=== PATIENT | female | born 1975 | race Two or more races ===

== ENCOUNTER 2016-08-13 10:28 | Inpatient (IN) | payer MEDICAID ==
[~2016-08-13] VITALS: Ht 165.1 cm; Wt 71.7 kg
[2016-08-13] MEDS ORDERED: SODIUM CHLORIDE 0.9% 500 ML IV ONE (11:15)
[2016-08-13] MEDS ORDERED: ONDANSETRON HCL 4 MG/2 ML VIAL IV ONE (11:15)
[2016-08-13] MEDS ORDERED: SODIUM CHLORIDE 0.9% 1,000 ML IV ONE ×3 (11:26→16:45)
[2016-08-13 11:34] LABS: Basophils # (auto) 0 uL; Basophils % (auto) 0.2 % (0.0-2.0); Eosinophils # (auto) 0 uL; Hematocrit 37.2 % (36.0-46.0); Hemoglobin 12.2 g/dL (12.2-16.2); Lymphocytes # (auto) 0.5 uL; Lymphocytes % (auto) 2.6 % (10.0-50.0); Mean Corpuscular Hemoglobin 28.7 pg (28.0-32.0); Mean Corpuscular Hgb Conc. 32.9 g/dL (32.0-36.0); Mean Corpuscular Volume 87.2 fL (80.0-100.0); Mean Platelet Volume 12.7 fL (7.4-10.4); Monocytes # (auto) 0.4 uL; Monocytes % (auto) 2.4 % (0.0-12.0); Neutrophils # (auto) 16.6 uL; Neutrophils % (auto) 94.8 % (37.0-80.0); Platelet Count (auto) 229 10^3/uL (140-450); Red Cell Distribution Width 13.6 % (11.6-16.0); SUSPECT VIEW TRANSMISSION; White Blood Cell 17.5 10^3/uL (4.4-10.8)
[2016-08-13 12:02] LABS: BUN/Creatinine Ratio 23.1; Bilirubin, Total 0.7 mg/dL (0.2-1.0); Calcium 8.9 mg/dL (8.5-10.1); Potassium 5.4 mmol/L (3.5-5.1); Total Protein 6.4 g/dL (6.4-8.2)
[2016-08-13] MEDS ORDERED: SODIUM CHLORIDE 0.9% 3,000 ML IV ONE (12:45)
[2016-08-13 12:50] LABS: Urine Bilirubin Negative (Negative); Urine Blood Negative /uL (Negative); Urine Color Yellow (Yellow); Urine Nitrite Negative (Negative); Urine RBC <1 /hpf (0 - 4); Urine Squamous Epithelial Cell FEW /hpf (<5); Urine Urobilinogen Normal (Negative); Urine pH 5.5 (5.0-8.0)
[2016-08-13 12:58] LABS: Urine Glucose 4+ mg/dL (Normal); Urine Ketone 1+ (Negative)
[2016-08-13] MEDS ORDERED: LORazepam 2MG/ML-1ML VIAL IV ONE (13:30)
[2016-08-13] MEDS ORDERED: NALBUPHINE HCL 10 MG/1ml INJECTION IV ONE (13:30)
[2016-08-13] MEDS ORDERED: PANTOPRAZOLE SODIUM 40 MG/10 ML VIAL IV ONE (13:30)
[2016-08-13] MEDS ORDERED: METOCLOPRAMIDE HCL 5MG/ml INJ 2ml VIAL IV ONE (13:30)
[2016-08-13] MEDS ORDERED: InsuLIN REG 1unit/0.01ml Soln (100units/ml) IV ONE ×2 (15:15→16:30)
[2016-08-13] MEDS ORDERED: InsuLIN R (HUMAN) 100 UNITS in SODIUM CHL 0.9% 99 ML IV SCH ×3 (16:10→17:30)
[2016-08-13] MEDS ORDERED: DEXTROSE (50%) 50ML SYRG IV PRN ×2 (16:15→17:30)
[2016-08-13] MEDS ORDERED: DOPamine 1600MCG/ML 250 ML IV ONE (16:15)
[2016-08-13] MEDS ORDERED: ACCU-CHEK COMFORT CURVE STRIP VI SCH (16:30)
[2016-08-13 16:56] LABS: Lactic Acid w/Reflex 3.3 mmol/L (0.4-2.0)
[2016-08-13 17:04] LABS: REFLEX LACTIC ACID YES OR NO YES
[2016-08-13] MEDS ORDERED: PIPERACILLIN-TAZOB 3.375GM 100 ML IV ONE (17:15)
[2016-08-13] MEDS ORDERED: MORPHINE SULF INJ 2 MG/ML SYRINGE 1ML IV PRN ×2 (17:30)
[2016-08-13] MEDS ORDERED: TEMAZEPAM 15 MG CAP PO PRN (17:30)
[2016-08-13] MEDS ORDERED: ACETAMINOPHEN 500 MG TAB PO PRN (17:30)
[2016-08-13] MEDS ORDERED: LORazepam 0.5 MG TAB PO PRN (17:30)
[2016-08-13] MEDS ORDERED: NITROGLYCERIN 0.4 MG SL TAB SL PRN (17:30)
[2016-08-13] MEDS ORDERED: HYDROcodone-ACET 5/325MG TAB PO PRN (17:30)
[2016-08-13] MEDS ORDERED: cefTRIAXone 1GM/50ML D5W 50 ML IV ONE (17:45)
[2016-08-13] MEDS: SODIUM CHLORIDE 0.9% 1,000 ML IV SCH ×2 (17:46→20:16)
[2016-08-13] MEDS: ACCU-CHEK COMFORT CURVE STRIP VI SCH ×6 (18:08→23:20)
[2016-08-13 18:48] LABS: Partial Thromboplastin Time 34.6 sec (22.64-33.71)
[2016-08-13 18:49] LABS: INR 1.36 (0.9-1.15); Prothrombin Time 14.9 sec (9.37-12.3)
[2016-08-13] MEDS ORDERED: POTASSIUM CHL 20 Meq TABLET PO ONE (20:45)
[2016-08-13] MEDS ORDERED: SODIUM CHLORIDE 0.9% 1,000 ML IV SCH ×2 (21:17→23:17)
[2016-08-13 21:26] LABS: Potassium 4.7 mmol/L (3.5-5.1)
[2016-08-14] MEDS: ACCU-CHEK COMFORT CURVE STRIP VI SCH ×20 (00:07→23:51)
[2016-08-14] MEDS: PROMETHAZINE HCL 25 MG/ML 1ML IV PRN ×2 (03:13→03:54)
[2016-08-14 04:14] LABS: BUN/Creatinine Ratio 21.5; Calcium 7.1 mg/dL (8.5-10.1); Potassium 4.7 mmol/L (3.5-5.1)
[2016-08-14 04:57] LABS: Hematocrit 35.6 % (36.0-46.0); Hemoglobin 11.8 g/dL (12.2-16.2); Mean Corpuscular Hgb Conc. 33.1 g/dL (32.0-36.0); Mean Corpuscular Volume 87.4 fL (80.0-100.0); Mean Platelet Volume 11.1 fL (7.4-10.4); Platelet Count (auto) 257 10^3/uL (140-450); Red Cell Distribution Width 13.8 % (11.6-16.0); SUSPECT VIEW TRANSMISSION; White Blood Cell 20.6 10^3/uL (4.4-10.8)
[2016-08-14 05:17] LABS: Albumin 2.4 g/dL (3.4-5.0); BUN/Creatinine Ratio 22.9; Bilirubin, Total 0.3 mg/dL (0.2-1.0); Calcium 7.1 mg/dL (8.5-10.1); Potassium 5.3 mmol/L (3.5-5.1)
[2016-08-14 05:20] LABS: Metamyelocytes % 0; Myelocytes % 0; Promyelocytes % 0; Reactive Lymphocytes 0
[2016-08-14 05:40] LABS: Hypersegmented Neutrophils Present; Platelet Estimate Adequate
[2016-08-14 05:41] LABS: Anisocytosis Slight; Ovalocytes FEW
[2016-08-14] MEDS ORDERED: VANCOMYCIN PER PHARMACY 0 MG IV SCH (06:45)
[2016-08-14] MEDS ORDERED: PIPERACILLIN-TAZOB 2.25GM 50 ML IV SCH (07:00)
[2016-08-14] MEDS: SODIUM CHLORIDE 0.9% 1,000 ML IV SCH ×2 (07:05→20:05)
[2016-08-14] MEDS: PIPERACILLIN-TAZOB 3.375GM 100 ML IV SCH ×4 (07:20→23:55)
[2016-08-14] MEDS ORDERED: cefTRIAXone 1GM/50ML D5W 50 ML IV SCH (09:00)
[2016-08-14] MEDS ORDERED: VANCOMYCIN 1GM/250ML D5W 250 ML IV ONE (09:00)
[2016-08-14] MEDS: PANTOPRAZOLE SODIUM 40 MG/10 ML VIAL IV SCH (10:15)
[2016-08-14 15:11] LABS: BUN/Creatinine Ratio 19.9; Calcium 7.4 mg/dL (8.5-10.1); Potassium 4.5 mmol/L (3.5-5.1)
[2016-08-14] MEDS ORDERED: INSULIN DETEMIR(LEVEMIR) 1unit/0.01ml Soln (100units/ml) SC ONE (16:30)
[2016-08-14] MEDS ORDERED: DEXTROSE (50%) 50ML SYRG IV PRN (17:30)
[2016-08-14] MEDS: InsuLIN REG 1unit/0.01ml Soln (100units/ml) SC SCH ×2 (17:38→23:51)
[2016-08-14] MEDS ORDERED: ALBUMIN 5% 250 ML IV ONE ×2 (18:15→18:30)
[2016-08-14] MEDS ORDERED: DEXTROSE (50%) 50ML SYRG IV ONE (23:00)
[2016-08-15] MEDS: InsuLIN REG 1unit/0.01ml Soln (100units/ml) SC SCH ×5 (03:00→17:41)
[2016-08-15] MEDS: ACCU-CHEK COMFORT CURVE STRIP VI SCH ×6 (03:13→21:56)
[2016-08-15 03:55] LABS: Basophils # (auto) 0.1 uL; Basophils % (auto) 0.5 % (0.0-2.0); Eosinophils # (auto) 0.3 uL; Eosinophils % (auto) 2.3 % (0.0-7.0); Hematocrit 33.4 % (36.0-46.0); Lymphocytes # (auto) 2.7 uL; Lymphocytes % (auto) 21.2 % (10.0-50.0); Mean Corpuscular Hemoglobin 28.9 pg (28.0-32.0); Mean Corpuscular Hgb Conc. 32.8 g/dL (32.0-36.0); Mean Corpuscular Volume 88.2 fL (80.0-100.0); Mean Platelet Volume 11.1 fL (7.4-10.4); Monocytes # (auto) 0.9 uL; Monocytes % (auto) 7.2 % (0.0-12.0); Neutrophils # (auto) 8.9 uL; Neutrophils % (auto) 68.8 % (37.0-80.0); Platelet Count (auto) 209 10^3/uL (140-450); Red Cell Distribution Width 13.9 % (11.6-16.0); White Blood Cell 12.9 10^3/uL (4.4-10.8)
[2016-08-15 04:21] LABS: BUN/Creatinine Ratio 16.8; Potassium 4.2 mmol/L (3.5-5.1)
[2016-08-15 04:22] LABS: Albumin 2.4 g/dL (3.4-5.0); Bilirubin, Total 0.4 mg/dL (0.2-1.0); Calcium 7.6 mg/dL (8.5-10.1); Magnesium 2.1 mg/dL (1.6-2.6); Total Protein 5.2 g/dL (6.4-8.2)
[2016-08-15] MEDS: PIPERACILLIN-TAZOB 3.375GM 100 ML IV SCH ×2 (06:19→12:03)
[2016-08-15] MEDS: SODIUM CHLORIDE 0.9% 1,000 ML IV SCH (09:25)
[2016-08-15] MEDS: PANTOPRAZOLE SODIUM 40 MG/10 ML VIAL IV SCH (09:41)
[2016-08-15] MEDS ORDERED: SODIUM CHLORIDE 0.9% 1,000 ML IV SCH (12:30)
[2016-08-15] MEDS ORDERED: LEVOFLOXACIN 500MG 100 ML IV ONE (12:30)
[2016-08-15] MEDS ORDERED: LISINOPRIL 10 MG TAB PO ONE (12:30)
[2016-08-15] MEDS ORDERED: DEXTROSE (50%) 50ML SYRG IV PRN (12:30)
[2016-08-15 17:40] VITALS: BP 142/92
[2016-08-15] MEDS ORDERED: ATOR10TA PO (20:01)
[2016-08-15] MEDS ORDERED: BENA5TAB3 PO (20:01)
[2016-08-15 22:00] VITALS: BP 145/88
[2016-08-15] MEDS ORDERED: INSULIN DETEMIR(LEVEMIR) 1unit/0.01ml Soln (100units/ml) SC SCH (22:00)
[2016-08-15] MEDS ORDERED: InsuLIN REG 1unit/0.01ml Soln (100units/ml) SC SCH (22:00)
[2016-08-15] MEDS ORDERED: ATORVASTATIN 20 MG TAB PO SCH (22:00)
[2016-08-16 05:00] VITALS: BP 123/74
[2016-08-16] MEDS: InsuLIN REG 1unit/0.01ml Soln (100units/ml) SC SCH ×2 (06:21→11:42)
[2016-08-16] MEDS: ACCU-CHEK COMFORT CURVE STRIP VI SCH ×2 (06:21→11:41)
[2016-08-16 06:38] LABS: Basophils # (auto) 0 uL; Basophils % (auto) 0.4 % (0.0-2.0); Eosinophils # (auto) 0.5 uL; Eosinophils % (auto) 6.2 % (0.0-7.0); Hematocrit 35.1 % (36.0-46.0); Hemoglobin 11.8 g/dL (12.2-16.2); Lymphocytes # (auto) 2.2 uL; Lymphocytes % (auto) 28.8 % (10.0-50.0); Mean Corpuscular Hemoglobin 29.2 pg (28.0-32.0); Mean Corpuscular Hgb Conc. 33.7 g/dL (32.0-36.0); Mean Corpuscular Volume 86.6 fL (80.0-100.0); Mean Platelet Volume 11.8 fL (7.4-10.4); Monocytes # (auto) 0.7 uL; Neutrophils # (auto) 4.3 uL; Neutrophils % (auto) 55.6 % (37.0-80.0); Platelet Count (auto) 193 10^3/uL (140-450); Red Cell Distribution Width 13.4 % (11.6-16.0); White Blood Cell 7.7 10^3/uL (4.4-10.8)
[2016-08-16 07:02] LABS: Calcium 8.7 mg/dL (8.5-10.1); Potassium 4.2 mmol/L (3.5-5.1)
[2016-08-16 07:04] LABS: BUN/Creatinine Ratio 11.6
[2016-08-16 08:00] VITALS: BP 143/87
[2016-08-16 09:01] VITALS: BP 143/87
[2016-08-16] MEDS ORDERED: LEVOFLOXACIN 500MG 100 ML IV SCH (10:00)
[2016-08-16] MEDS ORDERED: FUROSEMIDE 20 MG TAB PO SCH (10:00)
[2016-08-16] MEDS ORDERED: LISINOPRIL 10 MG TAB PO SCH (10:00)
[2016-08-16] MEDS: PANTOPRAZOLE SODIUM 40 MG/10 ML VIAL IV SCH (10:06)
[2016-08-16 13:00] VITALS: BP 163/94
[2016-08-16 16:08] VITALS: BP 163/94
[2016-08-16 17:00] VITALS: BP 138/83
== END 2016-08-16 17:10 | disposition home or self-care (01) | DRG 420 ==
LOC: ER 10:28 → TELE 10:29 → TELE-E-ADS 08-15 15:45 → TELE-WESTW 08-15 17:20 → UNDODISIN 08-16 12:10
PROVIDERS: ADMIT Internal Medicine; ATTEND Internal Medicine
DX: E10.10 Type 1 diabetes mellitus with ketoacidosis without coma (principal); N17.0 Acute kidney failure with tubular necrosis; D68.9 Coagulation defect, unspecified; R18.8 Other ascites; E44.1 Mild protein-calorie malnutrition; E87.5 Hyperkalemia; N18.3 Chronic kidney disease, stage 3 (moderate); E10.21 Type 1 diabetes mellitus with diabetic nephropathy; E10.40 Type 1 diabetes mellitus with diabetic neuropathy, unspecified; I12.9 Hypertensive chronic kidney disease with stage 1 through stage 4 chronic kidney disease, or unspecified chronic kidney disease; D72.829 Elevated white blood cell count, unspecified; E10.22 Type 1 diabetes mellitus with diabetic chronic kidney disease; E10.319 Type 1 diabetes mellitus with unspecified diabetic retinopathy without macular edema; E78.5 Hyperlipidemia, unspecified; E86.0 Dehydration; E86.1 Hypovolemia; F41.9 Anxiety disorder, unspecified; N17.9 Acute kidney failure, unspecified; Z80.3 Family history of malignant neoplasm of breast; Z83.3 Family history of diabetes mellitus; Z96.41 Presence of insulin pump (external) (internal); Z88.5 Allergy status to narcotic agent; Z88.8 Allergy status to other drugs, medicaments and biological substances; Z71.89 Other specified counseling; R10.9 Unspecified abdominal pain
CPT/HCPCS: 36415; 36600; 51702; 71010; 71250; 74176; 76705; 80048; 80053; 80061; 81001; 81025; 82010; 82150; 82570; 82805; 82962; 83036; 83605; 83690; 83735; 84156; 84300; 84443; 85007; 85025; 85027; 85610; 85652; 85730; 86141; 87040; 87086; 93005; 96361; 96374; 96375; 99291; C9113; J0696; J1815; J1956; J2405; J2543

== ENCOUNTER 2017-03-16 12:07 | Emergency (ER) | payer MEDICARE, OTHER ==
[~2017-03-16] VITALS: Ht 165.1 cm; Wt 58.5 kg
[~2017-03-16 12:07] MED LIST: ATOR10TA PO; BENA5TAB5 PO
[2017-03-16] MEDS ORDERED: SODIUM CHLORIDE 0.9% 1,000 ML IV ONE ×2 (13:00→13:30)
[2017-03-16 13:11] LABS: Basophils # (auto) 0 uL; Basophils % (auto) 0.2 % (0.0-2.0); Eosinophils # (auto) 0.1 uL; Eosinophils % (auto) 0.9 % (0.0-7.0); Hematocrit 38.1 % (36.0-46.0); Hemoglobin 12.5 g/dL (12.2-16.2); Lymphocytes # (auto) 0.5 uL; Lymphocytes % (auto) 4.3 % (10.0-50.0); Mean Corpuscular Hemoglobin 29.4 pg (28.0-32.0); Mean Corpuscular Hgb Conc. 32.8 g/dL (32.0-36.0); Mean Corpuscular Volume 89.7 fL (80.0-100.0); Monocytes # (auto) 0.3 uL; Neutrophils # (auto) 9.8 uL; Neutrophils % (auto) 91.6 % (37.0-80.0); Nucleated Red Blood Cells % 0.1 %; Platelet Count (auto) 237 10^3/uL (140-450); Red Blood Cells 4.24 10^6/uL (4.0-5.20); Red Cell Distribution Width 12.8 % (11.8-14.3); White Blood Cell 10.7 10^3/uL (4.4-10.8)
[2017-03-16 13:30] LABS: Albumin 2.4 g/dL (3.4-5.0); BUN/Creatinine Ratio 13.5; Calcium 8.2 mg/dL (8.5-10.1); Potassium 4.4 mmol/L (3.5-5.1)
[2017-03-16] MEDS ORDERED: InsuLIN REG 1unit/0.01ml Soln (100units/ml) IV ONE (13:30)
[2017-03-16 13:39] LABS: Bilirubin, Total 0.5 mg/dL (0.2-1.0); Total Protein 6.5 g/dL (6.4-8.2)
[2017-03-16] MEDS ORDERED: HYDROcodone-ACET 5/325MG TAB PO ONE (15:30)
[2017-03-16 16:03] VITALS: BP 125/67
== END 2017-03-16 16:33 | disposition home or self-care (01) ==
LOC: ER 12:07
DX: E10.65 Type 1 diabetes mellitus with hyperglycemia (principal); E11.22 Type 2 diabetes mellitus with diabetic chronic kidney disease; N18.9 Chronic kidney disease, unspecified; Z79.4 Long term (current) use of insulin; Z88.6 Allergy status to analgesic agent; E46 Unspecified protein-calorie malnutrition; Z68.21 Body mass index [BMI] 21.0-21.9, adult
CPT/HCPCS: 36415; 80053; 82962; 85025; 93005; 96361; 96374; 99285; J1815; J7030

== ENCOUNTER 2017-03-17 12:01 | Emergency (ER) | payer MEDICARE, OTHER ==
[~2017-03-17] VITALS: Ht 165.1 cm; Wt 58.5 kg
[2017-03-17 14:25] LABS: Basophils # (auto) 0 uL; Basophils % (auto) 0.3 % (0.0-2.0); Eosinophils # (auto) 0.4 uL; Eosinophils % (auto) 6.5 % (0.0-7.0); Hemoglobin 11.7 g/dL (12.2-16.2); Lymphocytes # (auto) 0.9 uL; Lymphocytes % (auto) 13.6 % (10.0-50.0); Mean Corpuscular Hemoglobin 29.1 pg (28.0-32.0); Mean Corpuscular Hgb Conc. 32.7 g/dL (32.0-36.0); Mean Corpuscular Volume 89.1 fL (80.0-100.0); Monocytes # (auto) 0.4 uL; Monocytes % (auto) 6.3 % (0.0-12.0); Neutrophils # (auto) 4.9 uL; Neutrophils % (auto) 73.3 % (37.0-80.0); Nucleated Red Blood Cells % 0.1 %; Platelet Count (auto) 233 10^3/uL (140-450); Red Blood Cells 4.03 10^6/uL (4.0-5.20); Red Cell Distribution Width 12.8 % (11.8-14.3); White Blood Cell 6.7 10^3/uL (4.4-10.8)
[2017-03-17 14:52] LABS: Albumin 2.4 g/dL (3.4-5.0); BUN/Creatinine Ratio 14.4; Bilirubin, Total 0.2 mg/dL (0.2-1.0); Calcium 8.2 mg/dL (8.5-10.1); Potassium 3.8 mmol/L (3.5-5.1); Total Protein 6.5 g/dL (6.4-8.2)
[2017-03-17] MEDS ORDERED: SODIUM CHLORIDE 0.9% 1,000 ML IV ONE (15:00)
[2017-03-17] MEDS ORDERED: ONDANSETRON HCL 4 MG/2 ML VIAL IV ONE (15:00)
[2017-03-17 15:25] VITALS: BP 124/61
[2017-03-17] MEDS ORDERED: DIPHENOXYLATE W/ATROPINE 2.5 MG TAB PO ONE (15:30)
== END 2017-03-17 16:47 | disposition home or self-care (01) ==
LOC: ER 12:01
DX: N20.0 Calculus of kidney (principal); E10.22 Type 1 diabetes mellitus with diabetic chronic kidney disease; N18.9 Chronic kidney disease, unspecified; R19.7 Diarrhea, unspecified; Z88.6 Allergy status to analgesic agent
CPT/HCPCS: 36415; 74176; 80053; 84702; 85025; 94761; 96374; 99285; J2405

== ENCOUNTER → 2017-11-13 | Outpatient (CLI) | payer MEDICARE, MEDICAID | END | disposition home or self-care (01) | LOC: Rad HDHVI 13:39 | PROVIDERS: ATTEND Internal Medicine | DX: E10.319 Type 1 diabetes mellitus with unspecified diabetic retinopathy without macular edema (principal); E10.22 Type 1 diabetes mellitus with diabetic chronic kidney disease; N18.3 Chronic kidney disease, stage 3 (moderate); R06.02 Shortness of breath | CPT/HCPCS: 93306 ==

== ENCOUNTER → 2017-11-18 | Outpatient (CLI) | payer MEDICARE, MEDICAID ==
[2017-11-18 11:56] LABS: Basophils # (auto) 0.1 uL; Basophils % (auto) 0.9 % (0.0-2.0); Eosinophils # (auto) 0.5 uL; Eosinophils % (auto) 8.6 % (0.0-7.0); Hemoglobin 12.6 g/dL (12.2-16.2); Lymphocytes # (auto) 1.5 uL; Mean Corpuscular Hemoglobin 28.8 pg (28.0-32.0); Mean Corpuscular Hgb Conc. 32.3 g/dL (32.0-36.0); Mean Corpuscular Volume 89.2 fL (80.0-100.0); Monocytes # (auto) 0.4 uL; Monocytes % (auto) 6.8 % (0.0-12.0); Neutrophils # (auto) 3.6 uL; Neutrophils % (auto) 58.7 % (37.0-80.0); Platelet Count (auto) 293 10^3/uL (140-450); Red Blood Cells 4.37 10^6/uL (4.0-5.20); Red Cell Distribution Width 13.4 % (11.8-14.3); Urine Blood TRACE /uL (Negative); Urine Specific Gravity 1.017 (1.001-1.035); White Blood Cell 6.2 10^3/uL (4.4-10.8)
[2017-11-18 13:32] LABS: Free T4 (Free Thyroxine) 1.25 ng/dL (0.89-1.76)
[2017-11-18 15:25] LABS: Albumin 2.3 g/dL (3.4-5.0); Bilirubin, Total 0.2 mg/dL (0.2-1.0); Calcium 9.3 mg/dL (8.5-10.1); Potassium 4.1 mmol/L (3.5-5.1); Total Protein 6.5 g/dL (6.4-8.2)
== END | disposition home or self-care (01) ==
LOC: LAB 08:51
PROVIDERS: ATTEND Internal Medicine
DX: Z00.01 Encounter for general adult medical examination with abnormal findings (principal); E03.9 Hypothyroidism, unspecified; E55.9 Vitamin D deficiency, unspecified; E11.22 Type 2 diabetes mellitus with diabetic chronic kidney disease; D51.9 Vitamin B12 deficiency anemia, unspecified; N39.0 Urinary tract infection, site not specified
CPT/HCPCS: 36415; 80053; 80061; 81003; 82306; 82607; 83036; 84439; 84443; 85025; 87086

== ENCOUNTER → 2017-11-30 | Outpatient (CLI) | payer MEDICARE, MEDICAID ==
[~2017-11-30] VITALS: Ht 165.1 cm; Wt 56.7 kg
[~2017-11-30] MED LIST changes: +ADENOSINE 48 MG in GIVE UN-DILUTED 0 ML IV ONE; +ADENOSINE 90 MG/30 ML INJ IV ONE
== END | disposition home or self-care (01) ==
LOC: Rad HDHVI 13:53
PROVIDERS: ATTEND Internal Medicine Cardiovascular Disease
DX: E10.319 Type 1 diabetes mellitus with unspecified diabetic retinopathy without macular edema (principal); E10.22 Type 1 diabetes mellitus with diabetic chronic kidney disease; N18.3 Chronic kidney disease, stage 3 (moderate); M65.30 Trigger finger, unspecified finger; L98.499 Non-pressure chronic ulcer of skin of other sites with unspecified severity; N28.9 Disorder of kidney and ureter, unspecified; R06.02 Shortness of breath; Z88.6 Allergy status to analgesic agent
CPT/HCPCS: 78452; 93017; 96374; A9500; J0153

== ENCOUNTER 2018-10-10 22:49 | Inpatient (IN) | payer OTHER, MEDICAID ==
[~2018-10-10] VITALS: Ht 165.1 cm; Wt 64.4 kg
[~2018-10-10 22:49] MED LIST changes: -ADENOSINE 48 MG in GIVE UN-DILUTED 0 ML IV ONE; -ADENOSINE 90 MG/30 ML INJ IV ONE
[2018-10-10 23:20] LABS: Basophils # (auto) 0 uL; Basophils % (auto) 0.6 % (0.0-2.0); Eosinophils # (auto) 0.4 uL; Eosinophils % (auto) 5.8 % (0.0-7.0); Hematocrit 32.9 % (36.0-46.0); Hemoglobin 10.8 g/dL (12.2-16.2); Lymphocytes # (auto) 1.4 uL; Lymphocytes % (auto) 22.3 % (10.0-50.0); Mean Corpuscular Hemoglobin 29.5 pg (28.0-32.0); Mean Corpuscular Hgb Conc. 32.9 g/dL (32.0-36.0); Mean Corpuscular Volume 89.4 fL (80.0-100.0); Monocytes # (auto) 0.6 uL; Monocytes % (auto) 9.5 % (0.0-12.0); Neutrophils # (auto) 3.9 uL; Neutrophils % (auto) 61.8 % (37.0-80.0); Nucleated Red Blood Cells % 0.1 %; Platelet Count (auto) 228 10^3/uL (140-450); Red Blood Cells 3.68 10^6/uL (4.0-5.20); Red Cell Distribution Width 13.1 % (11.8-14.3); White Blood Cell 6.3 10^3/uL (4.4-10.8)
[2018-10-10 23:39] LABS: Albumin 2.6 g/dL (3.4-5.0); BUN/Creatinine Ratio 13.7; Calcium 8.1 mg/dL (8.5-10.1); Potassium 5.1 mmol/L (3.5-5.1)
[2018-10-10 23:42] LABS: Bilirubin, Total 0.2 mg/dL (0.2-1.0); Total Protein 6.2 g/dL (6.4-8.2)
[2018-10-11] MEDS ORDERED: MORPHINE SULFATE 4 MG/ML SYR/VIAL IV ONE
[2018-10-11] MEDS ORDERED: DEXTROSE 10% 1,000 ML IV ONE (00:30)
[2018-10-11] MEDS ORDERED: VANCOMYCIN 1GM/250ML 250 ML IV ONE (02:15)
[2018-10-11] MEDS ORDERED: cefTRIAXone 1GM/50ML D5W 50 ML IV ONE (02:15)
[2018-10-11 02:45] LABS: Urine Bacteria MANY /hpf (None Seen); Urine Blood Negative /uL (Negative); Urine Hyaline Cast FEW /lpf (0 - 2); Urine Specific Gravity 1.008 (1.001-1.035); Urine WBC 11 /hpf (0 - 5)
[2018-10-11] MEDS ORDERED: diphenhdrAMINE HCL 50 MG/1 ML VL ONE (04:03)
[2018-10-11] MEDS ORDERED: diphenhdrAMINE HCL 50 MG/1 ML VL IV ONE (04:45)
[2018-10-11] MEDS ORDERED: ONDANSETRON HCL 4 MG/2 ML VIAL IV ONE ×2 (05:15)
[2018-10-11] MEDS ORDERED: HYDROcodone-ACET 5/325MG TAB PO PRN (05:15)
[2018-10-11] MEDS ORDERED: TEMAZEPAM 15 MG CAP PO PRN (05:15)
[2018-10-11] MEDS ORDERED: VANCOMYCIN PER PHARMACY 0 MG IV SCH (05:15)
[2018-10-11] MEDS ORDERED: MORPHINE SULF INJ 2 MG/ML SYRINGE 1ML IV PRN (05:15)
[2018-10-11] MEDS ORDERED: SODIUM CHLORIDE 0.9% 1,000 ML IV SCH ×2 (05:15→06:40)
[2018-10-11 06:40] LABS: Potassium 7.3 mmol/L (3.5-5.1)
[2018-10-11 06:41] LABS: BUN/Creatinine Ratio 14.1; Calcium 7.6 mg/dL (8.5-10.1)
[2018-10-11] MEDS ORDERED: SODIUM CHLORIDE 0.9% 1,000 ML IV ONE ×2 (07:00)
[2018-10-11] MEDS ORDERED: DEXTROSE (50%) 50ML SYRG IV ONE (07:00)
[2018-10-11] MEDS ORDERED: ACCU-CHEK COMFORT CURVE STRIP VI ONE (07:00)
[2018-10-11] MEDS ORDERED: InsuLIN REG 1unit/0.01ml Soln (100units/ml) SC ONE (07:00)
[2018-10-11] MEDS: LEVOTHYROXINE SODIUM 25 MCG TAB PO SCH (07:28)
[2018-10-11] MEDS ORDERED: DEXTROSE (50%) 50ML SYRG IV PRN (07:30)
[2018-10-11] MEDS: InsuLIN REG 1unit/0.01ml Soln (100units/ml) SC SCH ×4 (08:00→20:36)
[2018-10-11] MEDS ORDERED: SODIUM BICARBONATE 8.4 % INJ 50ML VIAL IV ONE (08:30)
[2018-10-11] MEDS ORDERED: InsuLIN REG 1unit/0.01ml Soln (100units/ml) IV ONE (08:30)
[2018-10-11] MEDS ORDERED: CALCIUM GLUC 4.65meq/50ml D5AE 50 ML IV ONE (08:30)
[2018-10-11] MEDS ORDERED: SODIUM ZIRCONIUM CYCL 10 GM PAK PO ONE (08:30)
[2018-10-11] MEDS: ACCU-CHEK COMFORT CURVE STRIP VI SCH ×4 (09:00→20:36)
[2018-10-11] MEDS ORDERED: cefTRIAXone 1GM/50ML D5W 50 ML IV SCH (09:00)
[2018-10-11] MEDS ORDERED: LISINOPRIL 20 MG TAB PO SCH (10:00)
[2018-10-11] MEDS ORDERED: DULoxetine HCL 30 MG CAP PO SCH (10:00)
[2018-10-11] MEDS ORDERED: SODIUM BICARBONATE 50ML VIAL 75 ML in SOD CHL 0.45% 1,000 ML IV SCH (10:45)
[2018-10-11] MEDS ORDERED: MEROPENEM 1GM IVPB 100 ML IV ONE (11:00)
[2018-10-11] MEDS: SODIUM BICARBONATE 50ML VIAL 50 ML in D5W 5% 1,000 ML IV SCH ×2 (12:15→22:16)
[2018-10-11] MEDS ORDERED: MEROPENEM 1GM IVPB 100 ML IV SCH (14:00)
--- NOTE | 2018-10-11 18:00 | NUR ---
Telemetry admit from [facility] admitted to Telemetry unit after SBAR received. Patient oriented to SUSAN caldwell RN, unit, room, bed, and unit policies regarding patient care and visiting hours. Patient now on continuous telemetry monitoring, tele box #11. Patient encouraged to call if they need something. All questions and concerns addressed, patient verbalized understanding.
[2018-10-11 18:47] LABS: Protein, Urine 92.6 mg/dL (0.0-11.9)
--- NOTE | 2018-10-11 18:51 | NUR ---
PAGED HOSPITALIST FOR HIGH BLOOD PRESSURE 177/90. AWAITING CALL BACK.
[2018-10-11] MEDS ORDERED: LISI-646 PO (18:54)
[2018-10-11] MEDS ORDERED: LEVO25TA6 PO (18:54)
[2018-10-11] MEDS ORDERED: ATOR20TA50 PO (18:54)
[2018-10-11] MEDS ORDERED: INSLISPI SC (18:54)
--- NOTE | 2018-10-11 19:28 | NUR ---
CLOSING NOTE ENDORSED CARE TO PREPRESS STRIPPER RNPRASHANTH. RN AWARE OF PATIENT HIGH BLOOD PRESSURE, AND PAGE OUT TO HOSPITALIST. PATIENT IN BED LOW LOCK POSITION, CALL LIGHT IN REACH. NO S/S OF DISTRESS.
--- NOTE | 2018-10-11 19:45 | NUR ---
Opening Shift Note Assumed care of patient, awake and alert, oriented x 4, follows direction, clear speech. On room air with even and unlabored respirations, no S/S of distress or SOB. Snyder intact and draining to gravity with clear yellow urine. Patient is able to turn and ambulate independently. Bed low locked position with side rails up x 2 and call light within reach. Instructed on POC and to call for assist PRN, will continue to monitor for changes Q1hr and PRN.
[2018-10-11 20:00] VITALS: BP 161/88
[2018-10-11] MEDS: ACETAMINOPHEN 325 MG TAB PO PRN (20:43)
[2018-10-11] MEDS: DULoxetine HCL 30 MG CAP PO SCH ×2 (20:44→22:31)
[2018-10-11] MEDS: ATORVASTATIN 20 MG TAB PO SCH ×2 (20:44→22:31)
--- NOTE | 2018-10-11 20:55 | NUR ---
Vasyl Funk NP RE: critical blood sugar 572, 536 patient alert and oriented x 4, follows directions, answers questions appropriately. Patient had episode of emesis, per patient she get nauseated with high blood sugar but usually relieved after throwing up. Patient reports throbbing headache /, BP 161/88 HR 103, see MAR for pain medication administration. No s/s of distress. awaiting call back. will continue care.
--- NOTE | 2018-10-11 21:10 | NUR ---
Received call back from FRANCO Funk updated on patient status. new order received for Zofran 4 mg q4hrs prn, read back and verified, will carry out orders and continue care.
[2018-10-11] MEDS: ONDANSETRON HCL 4 MG/2 ML VIAL IV PRN (21:13)
[2018-10-11 22:00] VITALS: BP 161/88
[2018-10-11] MEDS: MEROPENEM 1GM IVPB 100 ML IV SCH (22:31)
[2018-10-11 23:30] VITALS: BP 115/64
[2018-10-12] MEDS: ACCU-CHEK COMFORT CURVE STRIP VI SCH ×6 (00:32→20:36)
[2018-10-12] MEDS: InsuLIN REG 1unit/0.01ml Soln (100units/ml) SC SCH ×6 (00:33→20:35)
[2018-10-12 05:00] VITALS: BP 131/75
--- NOTE | 2018-10-12 05:00 | NUR ---
Vasyl Funk NP RE: critical blood sugar 30, 41 0425 accucheck 30, recheck 41. patient alert and oriented, responds appropriately and follows directions. patient reports diaphoresis, white vision, tongue and hands numb. Administered D50% per orders. 0455 re-assessed blood sugar accucheck 149, provided snack. no s/s of distress. awaiting call back, will continue care.
--- NOTE | 2018-10-12 06:00 | NUR ---
Received call back from FRANCO Funk updated on patient status. no new orders received. will continue care.
[2018-10-12] MEDS: LEVOTHYROXINE SODIUM 25 MCG TAB PO SCH (06:12)
[2018-10-12 06:34] LABS: Basophils # (auto) 0 uL; Basophils % (auto) 0.5 % (0.0-2.0); Eosinophils # (auto) 0.3 uL; Eosinophils % (auto) 4.3 % (0.0-7.0); Hematocrit 34.4 % (36.0-46.0); Hemoglobin 11.2 g/dL (12.2-16.2); Lymphocytes # (auto) 1.8 uL; Lymphocytes % (auto) 23.1 % (10.0-50.0); Mean Corpuscular Hemoglobin 29.4 pg (28.0-32.0); Mean Corpuscular Hgb Conc. 32.7 g/dL (32.0-36.0); Mean Corpuscular Volume 89.8 fL (80.0-100.0); Monocytes # (auto) 0.6 uL; Monocytes % (auto) 8.1 % (0.0-12.0); Neutrophils # (auto) 4.9 uL; Platelet Count (auto) 229 10^3/uL (140-450); Red Blood Cells 3.83 10^6/uL (4.0-5.20); White Blood Cell 7.7 10^3/uL (4.4-10.8)
[2018-10-12 06:44] LABS: Potassium 4.8 mmol/L (3.5-5.1)
[2018-10-12 06:58] LABS: Albumin 2.3 g/dL (3.4-5.0); BUN/Creatinine Ratio 13.8; Bilirubin, Total 0.4 mg/dL (0.2-1.0); Calcium 8.6 mg/dL (8.5-10.1); Magnesium 2.4 mg/dL (1.6-2.6); Total Protein 6.1 g/dL (6.4-8.2)
--- NOTE | 2018-10-12 06:58 | NUR ---
Closing Note patient resting in bed with even and unlabored respirations, no s/s of distress. Endorsed care to day shift RN.
[2018-10-12] MEDS: MEROPENEM 1GM IVPB 100 ML IV SCH ×2 (08:20→22:04)
[2018-10-12 08:37] VITALS: BP 133/78
[2018-10-12] MEDS: SOD CHL 0.45% 1,000 ML IV SCH (11:30)
[2018-10-12 13:21] VITALS: BP 141/83
[2018-10-12 17:14] VITALS: BP 160/86
[2018-10-12] MEDS: ACETAMINOPHEN 325 MG TAB PO PRN (20:31)
[2018-10-12] MEDS: DULoxetine HCL 30 MG CAP PO SCH (20:33)
[2018-10-12 21:30] VITALS: BP 145/82
[2018-10-12] MEDS ORDERED: ATORVASTATIN 20 MG TAB PO SCH (22:00)
[2018-10-13] MEDS: ACCU-CHEK COMFORT CURVE STRIP VI SCH ×5 (00:39→17:10)
[2018-10-13] MEDS: SOD CHL 0.45% 1,000 ML IV SCH (03:51)
[2018-10-13] MEDS: InsuLIN REG 1unit/0.01ml Soln (100units/ml) SC SCH ×5 (04:23→16:00)
[2018-10-13 04:30] VITALS: BP 160/98
[2018-10-13 06:12] LABS: Basophils # (auto) 0 uL; Basophils % (auto) 0.7 % (0.0-2.0); Eosinophils # (auto) 0.4 uL; Eosinophils % (auto) 6.8 % (0.0-7.0); Hematocrit 36.8 % (36.0-46.0); Hemoglobin 12.1 g/dL (12.2-16.2); Lymphocytes # (auto) 1.3 uL; Lymphocytes % (auto) 23.7 % (10.0-50.0); Mean Corpuscular Hemoglobin 29.4 pg (28.0-32.0); Mean Corpuscular Hgb Conc. 32.9 g/dL (32.0-36.0); Mean Corpuscular Volume 89.3 fL (80.0-100.0); Monocytes # (auto) 0.4 uL; Monocytes % (auto) 6.9 % (0.0-12.0); Neutrophils # (auto) 3.5 uL; Neutrophils % (auto) 61.9 % (37.0-80.0); Platelet Count (auto) 235 10^3/uL (140-450); Red Blood Cells 4.12 10^6/uL (4.0-5.20); Red Cell Distribution Width 12.9 % (11.8-14.3); White Blood Cell 5.6 10^3/uL (4.4-10.8)
[2018-10-13] MEDS: LEVOTHYROXINE SODIUM 25 MCG TAB PO SCH (06:32)
[2018-10-13 06:39] LABS: BUN/Creatinine Ratio 13.8; Calcium 8.4 mg/dL (8.5-10.1); Magnesium 2.2 mg/dL (1.6-2.6)
--- NOTE | 2018-10-13 06:55 | NUR ---
Closing Note patient resting in bed with even and unlabored respirations, no s/s of distress. Endorsed care to day shift RN.
[2018-10-13 07:07] LABS: Potassium 6.2 mmol/L (3.5-5.1)
--- NOTE | 2018-10-13 07:11 | NUR ---
Paged Hospitalist RE: critical K 6.2 awaiting call back. day shift RN Anna aware, endorsed care.
[2018-10-13] MEDS ORDERED: LACTULOSE 20Gm/30ML SOLN PO ONE (07:15)
[2018-10-13] MEDS ORDERED: SODIUM BICARBONATE 8.4 % INJ 50ML VIAL IV ONE (07:15)
--- NOTE | 2018-10-13 07:15 | NUR ---
Received call back from FRANCO Guzmán updated on patient status, new order to repeat bmp, read back and verified, will carry out order, informed day shift RUSH Castillo.
[2018-10-13] MEDS ORDERED: FUROSEMIDE 20 MG/2 ML VIAL IV ONE (07:30)
--- NOTE | 2018-10-13 08:10 | NUR ---
DR. LAROSE AT BEDSIDE PER DR. LAROSE PT NEEDS PROPER DIET TO GET HER BLOOD SUGAR CONTROLLED. PT WAS GIVEN BREAD, CREAM OF WHEAT AND BANANA AND POTASSIUM IS HIGH. CALLED DIETARY TO TALK TO THE PT REGARDING HER DIET PREFERENCES AND ALLERGIES. PT STATED SHE IS NOT ALLERGIC TO EGGS.
[2018-10-13] MEDS: ONDANSETRON HCL 4 MG/2 ML VIAL IV PRN (08:28)
[2018-10-13 08:34] LABS: BUN/Creatinine Ratio 12.6; Calcium 8.7 mg/dL (8.5-10.1); Potassium 5.1 mmol/L (3.5-5.1)
[2018-10-13 09:00] VITALS: BP 107/73
[2018-10-13] MEDS: MEROPENEM 1GM IVPB 100 ML IV SCH (10:03)
--- NOTE | 2018-10-13 10:42 | NUR ---
DR. LEWIS AT BEDSIDE DR. LEWIS MADE AWARE INSULIN WAS HELD, PT'S BLOOD SUGAR HAS BEEN GOING UP AND DOWN AND PT DID NOT EAT HER BREAKFAST AND PT IS HAVING DIARRHEA DUE TO LACTULOSE. DR. LEWIS TOLD THE PT THAT SHE NEEDS PICC LINE FOR FOUR WEEKS IV ANTIBIOTIC AND SHE NEEDS TO GO TO SNF TO MONITOR PT'S BLOOD SUGAR AND POTASSIUM LEVEL. PT VERBALIZED UNDERSTANDING.
--- NOTE | 2018-10-13 10:50 | NUR ---
PT/PTT ORDERED STAT PER PROTOCOL FOR PICC LINE PLACEMENT.
[2018-10-13 11:39] LABS: INR 0.95 (0.9-1.15); Partial Thromboplastin Time 23.4 sec (23.64-32.05)
[2018-10-13 13:01] VITALS: BP 150/84
--- NOTE | 2018-10-13 14:50 | NUR ---
SPOKE WITH [facility], ETA WILL BE AT 5PM THIS AFTERNOON.
--- NOTE | 2018-10-13 15:24 | NUR ---
[facility] [phone] and for [facility] is [phone] per ALEXANDR at [facility]
--- NOTE | 2018-10-13 15:29 | NUR ---
DR. LEWIS NOTIFIED PT IS POSITIVE FOR KLEBSIELLA PNEUMONIAE- ESBL IN URINE
--- NOTE | 2018-10-13 15:51 | NUR ---
Per SS consult for abx with merrem 1gm g12hrs for 4 weeks. Contacted and faxed medical records to all three facilities [facility], [facility] and [facility]. Per Ivette from [facility] Ph: ) Fax: ) pt has been accepted to room 15b accepting MD Dr. Woods. Contacted and faxed medical records to [facility] transportation Ph: ) Fax: ). Informed RUSH Castillo and Pt of accepting facility. Per RUSH Castillo [facility] transportation called and confirm fern picker time at 17:00. Informed Consultant Teacher Essence for authorization for Insurance. Addendum: 10/13/18 at 1605 by DELFINO CABRERA Amended: Links added.
--- NOTE | 2018-10-13 16:00 | NUR ---
DR. LEWIS ORDERED TO CHANGE ANTIBIOTIC TO INVANZ 1 GRAM IV DAILY.
--- NOTE | 2018-10-13 16:34 | NUR ---
REPORT CALLED TO RUSH ARIAS IN [facility]
[2018-10-13 16:35] VITALS: BP 145/72
--- NOTE | 2018-10-13 16:35 | NUR ---
ROMULO MENDEZ RN MADE AWARE ANTIBIOTIC WAS CHANGED TO INVANZ 1GRAM IV DAILY FOR KLEBSIELLA PNEUMONIAE- ESBL
--- NOTE | 2018-10-13 16:47 | NUR ---
PICC line placement Patient educated on need for PICC line placement. All risks and benefits explained and all questions and concerns addressed prior to procedure. Noted past medical history and allergies with no contraindications. INR and Plt counts within acceptable range. 5 fr PICC line inserted via left basilic vein using [employer] US and Tip Location System. Sterile technique with maximum barrier precautions utilized. Blood return obtained from each of the two lumens and each flushed easily with NS using proper technique. PICC secured with Stat-lock; biodisc and occlusive dressing applied. Stat portable chest x-ray obtained for PICC tip placement. *Baseline Arm Circumference 29 cm. *Internal Length 40 cm. *External Length 0 cm. *PICC lot #[id number]. Note: Successful access to left upper arm x 1 attempt. Initially right brachial, cephalic and basilic vessels were attempted for PICC placement with no sucess. Met resistance at PICC line insertion repeatedly. Pt was very pleasant, understandable and tolerated the long procedure well. Pt was reassured and explained of reasons for unsuccessful PICC line placement to right upper arm. Training of Ric BEVERLY was done during this procedure whom attempted access to right cephalic.
[2018-10-13] MEDS ORDERED: LIDOCAINE 1% (LOCAL ANESTH.) PF 5ml SDV ID ONE (17:00)
--- NOTE | 2018-10-13 17:00 | NUR ---
OK to Use PICC Line X-ray completed. Primary RN notified.
--- NOTE | 2018-10-13 17:46 | NUR ---
PT TRANSFERRED TO [facility]. Discharge instructions given as ordered. All questions and concerns addressed. Patient verbalized understanding. Medication reconciliation form completed and copy given to patient. IV removed with catheter intact, pressure dressing applied, DISCHARGED WITH childers catheter TO LEG BAG. Telemetry unit returned to ICU. Patient taken to vehicle via wheelchair with all personal belongings, accompanied by staff and family member. No distress noted at time of departure.
[2018-10-13] MEDS ORDERED: ERTAPENEM SOD INJ 1 GM in SODIUM CHL 0.9% 50 ML IV SCH (21:00)
[2018-10-13] MEDS ORDERED: SODIUM CHLOR 0.9% PF (SALINE LOCK) 10ML VIAL/SYR IV SCH (22:00)
== END 2018-10-13 17:46 | DRG 683 ==
LOC: EDBD 22:49 → ER 22:51 → OVERFLOW 22:52 → WEST WING 10-11 17:51 → TELE-WESTW 10-11 20:46
PROVIDERS: ADMIT Nurse Practitioner Family; ATTEND Internal Medicine
DX: N17.9 Acute kidney failure, unspecified (principal); E44.0 Moderate protein-calorie malnutrition; E10.649 Type 1 diabetes mellitus with hypoglycemia without coma; N18.3 Chronic kidney disease, stage 3 (moderate); E87.5 Hyperkalemia; E10.22 Type 1 diabetes mellitus with diabetic chronic kidney disease; I12.9 Hypertensive chronic kidney disease with stage 1 through stage 4 chronic kidney disease, or unspecified chronic kidney disease; E03.9 Hypothyroidism, unspecified; E10.319 Type 1 diabetes mellitus with unspecified diabetic retinopathy without macular edema; E10.65 Type 1 diabetes mellitus with hyperglycemia; E78.5 Hyperlipidemia, unspecified; K59.00 Constipation, unspecified; L30.9 Dermatitis, unspecified; Z96.41 Presence of insulin pump (external) (internal); N30.80 Other cystitis without hematuria; Z79.4 Long term (current) use of insulin; Z83.3 Family history of diabetes mellitus; Z86.73 Personal history of transient ischemic attack (TIA), and cerebral infarction without residual deficits; Z88.5 Allergy status to narcotic agent; Z88.8 Allergy status to other drugs, medicaments and biological substances; Z88.1 Allergy status to other antibiotic agents; Z79.899 Other long term (current) drug therapy; Z68.23 Body mass index [BMI] 23.0-23.9, adult
CPT/HCPCS: 36415; 36569; 71045; 74176; 80048; 80053; 81001; 82570; 82962; 83036; 83605; 83735; 84132; 84133; 84156; 84300; 85025; 85610; 85730; 87040; 87086; 87088; 87186; 93005; 96361; 96365; 96367; 96375; G0378; J0610; J0696; J1335; J1815; J2185; J2405

== ENCOUNTER 2019-03-03 10:30 | Emergency (ER) | payer OTHER, MEDICAID ==
[~2019-03-03] VITALS: Ht 165.1 cm; Wt 64.0 kg
[~2019-03-03 10:30] MED LIST changes: -ATOR10TA PO; +ATOR20TA50 PO; -BENA5TAB5 PO; +INSLISPI SC; +LEVO25TA6 PO; +LISI-646 PO
[2019-03-03 11:20] LABS: Basophils # (auto) 0 uL; Basophils % (auto) 0.3 % (0.0-2.0); Eosinophils # (auto) 0 uL; Hematocrit 36.3 % (36.0-46.0); Hemoglobin 11.9 g/dL (12.2-16.2); Lymphocytes # (auto) 0.5 uL; Lymphocytes % (auto) 5.7 % (10.0-50.0); Mean Corpuscular Hemoglobin 29.3 pg (28.0-32.0); Mean Corpuscular Hgb Conc. 32.8 g/dL (32.0-36.0); Mean Corpuscular Volume 89.3 fL (80.0-100.0); Monocytes # (auto) 0.2 uL; Monocytes % (auto) 2.3 % (0.0-12.0); Neutrophils # (auto) 8.5 uL; Neutrophils % (auto) 91.7 % (37.0-80.0); Platelet Count (auto) 253 10^3/uL (140-450); Red Blood Cells 4.07 10^6/uL (4.0-5.20); Red Cell Distribution Width 13.1 % (11.8-14.3); White Blood Cell 9.3 10^3/uL (4.4-10.8)
[2019-03-03 11:33] LABS: Albumin 2.6 g/dL (3.4-5.0); Calcium 8.9 mg/dL (8.5-10.1); Potassium 5.1 mmol/L (3.5-5.1)
[2019-03-03 11:36] LABS: BUN/Creatinine Ratio 14.3; Bilirubin, Total 0.4 mg/dL (0.2-1.0); Total Protein 6.4 g/dL (6.4-8.2)
[2019-03-03] MEDS ORDERED: SODIUM CHLORIDE 0.9% 1,000 ML IV ONE (11:45)
[2019-03-03 14:00] VITALS: BP 135/69
== END 2019-03-03 15:50 | disposition home or self-care (01) ==
LOC: ER 10:48
DX: E10.65 Type 1 diabetes mellitus with hyperglycemia (principal); E86.0 Dehydration; E44.0 Moderate protein-calorie malnutrition; Z68.23 Body mass index [BMI] 23.0-23.9, adult; Z79.4 Long term (current) use of insulin; Z86.73 Personal history of transient ischemic attack (TIA), and cerebral infarction without residual deficits; Z88.1 Allergy status to other antibiotic agents
CPT/HCPCS: 36415; 80053; 82962; 85025; 93005; 96360

== ENCOUNTER 2019-03-30 08:32 | Emergency (ER) | payer OTHER, MEDICAID ==
[~2019-03-30] VITALS: Ht 157.5 cm; Wt 63.5 kg
[2019-03-30] MEDS ORDERED: SODIUM CHLORIDE 0.9% 1,000 ML IVB ONE (09:24)
[2019-03-30] MEDS ORDERED: PROMETHAZINE HCL 25 MG/ML 1ML IV PRN (09:30)
[2019-03-30 09:43] LABS: Basophils # (auto) 0 uL; Eosinophils # (auto) 0.3 uL; Eosinophils % (auto) 5.8 % (0.0-7.0); Hematocrit 36.2 % (36.0-46.0); Hemoglobin 11.9 g/dL (12.2-16.2); Lymphocytes # (auto) 0.9 uL; Lymphocytes % (auto) 20.5 % (10.0-50.0); Mean Corpuscular Hemoglobin 29.2 pg (28.0-32.0); Mean Corpuscular Hgb Conc. 32.8 g/dL (32.0-36.0); Mean Corpuscular Volume 89.1 fL (80.0-100.0); Monocytes # (auto) 0.4 uL; Monocytes % (auto) 7.7 % (0.0-12.0); Nucleated Red Blood Cells % 0.1 %; Platelet Count (auto) 236 10^3/uL (140-450); Red Blood Cells 4.07 10^6/uL (4.0-5.20); Red Cell Distribution Width 13.4 % (11.8-14.3); White Blood Cell 4.6 10^3/uL (4.4-10.8)
[2019-03-30 09:58] LABS: Magnesium 2.2 mg/dL (1.6-2.6)
[2019-03-30] MEDS ORDERED: PANTOPRAZOLE 40 MG TAB PO ONE (10:00)
[2019-03-30 10:10] LABS: Albumin 2.6 g/dL (3.4-5.0); Calcium 8.9 mg/dL (8.5-10.1); Potassium 5.4 mmol/L (3.5-5.1)
[2019-03-30 10:14] LABS: BUN/Creatinine Ratio 11.6; Bilirubin, Total 0.3 mg/dL (0.2-1.0); Total Protein 6.5 g/dL (6.4-8.2)
[2019-03-30 10:18] LABS: Beta HCG, Quantitative < 1 mlU/mL (1-3); Thyroid Stimulating Hormone 2.23 uIU/mL (0.358-3.74)
[2019-03-30 13:49] VITALS: BP 153/81
== END 2019-03-30 14:24 | disposition home or self-care (01) ==
LOC: EDBD 08:32 → ER 08:33
DX: K29.60 Other gastritis without bleeding (principal); B96.81 Helicobacter pylori [H. pylori] as the cause of diseases classified elsewhere; B96.89 Other specified bacterial agents as the cause of diseases classified elsewhere; E11.21 Type 2 diabetes mellitus with diabetic nephropathy; E11.319 Type 2 diabetes mellitus with unspecified diabetic retinopathy without macular edema; I12.9 Hypertensive chronic kidney disease with stage 1 through stage 4 chronic kidney disease, or unspecified chronic kidney disease; E11.22 Type 2 diabetes mellitus with diabetic chronic kidney disease; N18.9 Chronic kidney disease, unspecified; Z88.1 Allergy status to other antibiotic agents; Z88.6 Allergy status to analgesic agent
CPT/HCPCS: 36415; 80053; 82962; 83690; 83735; 84443; 84702; 85025; 96361; 96374; 99283; J2550; J7030

== ENCOUNTER 2019-07-23 04:01 | Emergency (ER) | payer OTHER, MEDICAID ==
[~2019-07-23] VITALS: Ht 160 cm; Wt 65.8 kg
[2019-07-23 05:11] LABS: Basophils # (auto) 0.1 10 ^3/uL (0-0.2); Basophils % (auto) 0.9 % (0.0-2.0); Eosinophils # (auto) 0.4 10 ^3/uL (0-0.8); Eosinophils % (auto) 4.5 % (0.0-7.0); Hematocrit 35.4 % (36.0-46.0); Hemoglobin 11.5 g/dL (12.2-16.2); Lymphocytes # (auto) 1.6 10 ^3/uL (0.4-5.4); Lymphocytes % (auto) 18.8 % (10.0-50.0); Mean Corpuscular Hemoglobin 29.1 pg (28.0-32.0); Mean Corpuscular Hgb Conc. 32.4 g/dL (32.0-36.0); Mean Corpuscular Volume 89.9 fL (80.0-100.0); Monocytes # (auto) 0.7 10 ^3/uL (0-1.3); Monocytes % (auto) 7.9 % (0.0-12.0); Neutrophils # (auto) 5.7 10 ^3/uL (1.6-8.6); Neutrophils % (auto) 67.9 % (37.0-80.0); Platelet Count (auto) 222 10^3/uL (140-450); Red Blood Cells 3.94 10^6/uL (4.0-5.20); Red Cell Distribution Width 13.8 % (11.8-14.3); White Blood Cell 8.5 10^3/uL (4.4-10.8)
[2019-07-23 05:29] LABS: Albumin 2.3 g/dL (3.4-5.0); BUN/Creatinine Ratio 9.9; Calcium 7.8 mg/dL (8.5-10.1); Potassium 4.6 mmol/L (3.5-5.1)
[2019-07-23 05:32] LABS: Bilirubin, Total 0.2 mg/dL (0.2-1.0); Total Protein 6.1 g/dL (6.4-8.2)
[2019-07-23 06:00] VITALS: BP 142/76
== END 2019-07-23 06:20 | disposition home or self-care (01) ==
LOC: EDBD 04:01 → ER 04:01
DX: E11.649 Type 2 diabetes mellitus with hypoglycemia without coma (principal); K31.84 Gastroparesis; E11.22 Type 2 diabetes mellitus with diabetic chronic kidney disease; I12.9 Hypertensive chronic kidney disease with stage 1 through stage 4 chronic kidney disease, or unspecified chronic kidney disease; N18.9 Chronic kidney disease, unspecified; Z86.73 Personal history of transient ischemic attack (TIA), and cerebral infarction without residual deficits; Z88.1 Allergy status to other antibiotic agents; Z88.8 Allergy status to other drugs, medicaments and biological substances
CPT/HCPCS: 36415; 80053; 85025

== ENCOUNTER 2020-07-24 14:37 | Inpatient (IN) | payer OTHER, MEDICAID ==
[~2020-07-24] VITALS: Ht 165.1 cm; Wt 78.5 kg
[~2020-07-24 14:37] MED LIST changes: -LISI-646 PO; +LISI20TA28 PO
[2020-07-24 16:17] LABS: Basophils # (auto) 0.1 10 ^3/uL (0-0.2); Basophils % (auto) 1.1 % (0.0-2.0); Eosinophils # (auto) 0.4 10 ^3/uL (0-0.8); Eosinophils % (auto) 7.3 % (0.0-7.0); Hematocrit 33.1 % (36.0-46.0); Hemoglobin 10.9 g/dL (12.2-16.2); Lymphocytes # (auto) 1.7 10 ^3/uL (0.4-5.4); Lymphocytes % (auto) 27.6 % (10.0-50.0); Mean Corpuscular Hemoglobin 29.5 pg (28.0-32.0); Mean Corpuscular Hgb Conc. 32.8 g/dL (32.0-36.0); Mean Corpuscular Volume 89.9 fL (80.0-100.0); Monocytes # (auto) 0.7 10 ^3/uL (0-1.3); Monocytes % (auto) 11.2 % (0.0-12.0); Neutrophils # (auto) 3.2 10 ^3/uL (1.6-8.6); Neutrophils % (auto) 52.8 % (37.0-80.0); Nucleated Red Blood Cells % 0.1 %; Platelet Count (auto) 284 10^3/uL (140-450); Red Blood Cells 3.68 10^6/uL (4.0-5.20); Red Cell Distribution Width 14.2 % (11.8-14.3)
[2020-07-24 16:27] LABS: Albumin 2.8 g/dL (3.4-5.0); Anion Gap 10 (5-15); Aspartate Aminotransferase 15 U/L (15-37); Blood Urea Nitrogen 37 mg/dL (7-18); Calcium 8.8 mg/dL (8.5-10.1); Carbon Dioxide 30 mmol/L (21-32); Chloride 96 mmol/L (98-107); GFR African American 10 mL/min; GFR Non-African American 8 mL/min; Glucose 63 mg/dL (74-106); Sodium 136 mmol/L (136-145)
[2020-07-24 16:31] LABS: INR 1.06 (0.9-1.15); Partial Thromboplastin Time 29.1 sec (23.0-31.2)
[2020-07-24 16:35] LABS: Alanine Aminotransferase 19 U/L (13-56); Alkaline Phosphatase 114 U/L (45-117); Bilirubin, Total 0.4 mg/dL (0.2-1.0); Total Protein 7.6 g/dL (6.4-8.2)
[2020-07-24 16:54] LABS: Potassium 2.8 mmol/L (3.5-5.1)
[2020-07-24] MEDS ORDERED: POTASSIUM EFFERVESENT TAB 25 MEQ PO ONE (17:00)
[2020-07-24] MEDS ORDERED: MORPHINE SULFATE 4 MG/ML SYR/VIAL IV PRN (19:00)
[2020-07-24] MEDS ORDERED: ACETAMINOPHEN 325 MG TAB PO PRN (19:00)
[2020-07-24] MEDS ORDERED: MORPHINE SULF INJ 2 MG/ML SYRINGE 1ML IV PRN (19:00)
[2020-07-24] MEDS ORDERED: NITROGLYCERIN 0.4 MG SL TAB SL PRN (19:00)
[2020-07-24] MEDS ORDERED: D5W/ SOD CHL 0.9%/KCL 20MEQ 1,000 ML IV SCH (19:15)
[2020-07-24] MEDS ORDERED: DEXTROSE (50%) 50ML SYRG IV PRN (19:15)
[2020-07-24 19:46] LABS: Urine Bacteria FEW /hpf (None Seen); Urine Blood 1+ /uL (Negative); Urine Specific Gravity 1.042 (1.001-1.035); Urine WBC 16 /hpf (0 - 5)
[2020-07-24] MEDS ORDERED: FURO20TA3 PO (20:50)
[2020-07-24] MEDS ORDERED: DULO20CA PO (20:50)
[2020-07-24] MEDS: ACCU-CHEK COMFORT CURVE STRIP VI SCH (21:52)
[2020-07-24] MEDS: PANTOPRAZOLE 40 MG/10 ML VIAL INJ IV SCH (21:52)
[2020-07-24] MEDS: InsuLIN REG 1unit/0.01ml Soln (100units/ml) SC SCH (21:53)
[2020-07-24] MEDS: BACITRACIN TOP OINT 1 UD PKG TOP SCH (21:53)
[2020-07-24 22:52] VITALS: BP 133/74
[2020-07-24] MEDS ORDERED: B-CO1TAB33 PO (23:40)
[2020-07-24] MEDS ORDERED: POM PO (23:45)
[2020-07-24] MEDS ORDERED: CHOL1CAP58 PO (23:55)
[2020-07-25 04:57] VITALS: BP 107/63
[2020-07-25 05:12] LABS: Basophils # (auto) 0.1 10 ^3/uL (0-0.2); Basophils % (auto) 1.6 % (0.0-2.0); Eosinophils # (auto) 0.6 10 ^3/uL (0-0.8); Eosinophils % (auto) 12.5 % (0.0-7.0); Hematocrit 27.5 % (36.0-46.0); Hemoglobin 9.2 g/dL (12.2-16.2); Lymphocytes # (auto) 1.3 10 ^3/uL (0.4-5.4); Lymphocytes % (auto) 28.8 % (10.0-50.0); Mean Corpuscular Hemoglobin 29.9 pg (28.0-32.0); Mean Corpuscular Hgb Conc. 33.5 g/dL (32.0-36.0); Mean Corpuscular Volume 89.3 fL (80.0-100.0); Monocytes # (auto) 0.6 10 ^3/uL (0-1.3); Neutrophils # (auto) 1.9 10 ^3/uL (1.6-8.6); Neutrophils % (auto) 43.1 % (37.0-80.0); Nucleated Red Blood Cells % 0.1 %; Platelet Count (auto) 250 10^3/uL (140-450); Red Blood Cells 3.07 10^6/uL (4.0-5.20); Red Cell Distribution Width 14.2 % (11.8-14.3); White Blood Cell 4.4 10^3/uL (4.4-10.8)
[2020-07-25 05:32] LABS: Potassium 3.3 mmol/L (3.5-5.1)
[2020-07-25 05:39] LABS: Albumin 2.1 g/dL (3.4-5.0); BUN/Creatinine Ratio 5.5; Bilirubin, Total 0.2 mg/dL (0.2-1.0); Calcium 8.2 mg/dL (8.5-10.1); Total Protein 5.8 g/dL (6.4-8.2)
[2020-07-25] MEDS: LEVOTHYROXINE SODIUM 25 MCG TAB PO SCH ×2 (06:04→06:24)
[2020-07-25] MEDS: ACCU-CHEK COMFORT CURVE STRIP VI SCH ×4 (06:04→21:54)
[2020-07-25] MEDS: InsuLIN REG 1unit/0.01ml Soln (100units/ml) SC SCH ×2 (06:05→12:48)
[2020-07-25] MEDS: HYDROcodone-ACET 5/325MG TAB PO PRN (06:20)
[2020-07-25 09:01] VITALS: BP 102/52
[2020-07-25] MEDS: PANTOPRAZOLE 40 MG/10 ML VIAL INJ IV SCH (09:52)
[2020-07-25] MEDS: DULoxetine HCL 30 MG CAP PO SCH (09:52)
[2020-07-25] MEDS: BACITRACIN TOP OINT 1 UD PKG TOP SCH ×2 (09:52→21:54)
[2020-07-25] MEDS ORDERED: POTASSIUM CHL 20 Meq TABLET PO ONE (11:45)
[2020-07-25] MEDS ORDERED: FUROSEMIDE 40 MG/4 ML VIAL IV ONE (11:45)
[2020-07-25] MEDS: FUROSEMIDE 100 MG/10ML VIAL IV SCH ×2 (12:00→18:22)
[2020-07-25] MEDS: methylPREDNISolone SOD SUCC 40 MG/ML VL IV SCH ×2 (12:47→21:54)
[2020-07-25] MEDS: ceFAZolin 1GM/50ML 50 ML IV SCH (12:47)
[2020-07-25] MEDS: POTASSIUM EFFERVESENT TAB 25 MEQ PO SCH (12:47)
[2020-07-25 12:48] VITALS: BP 116/66
[2020-07-25 16:45] VITALS: BP 126/68
[2020-07-25] MEDS ORDERED: InsuLIN REG 1unit/0.01ml Soln (100units/ml) SC SCH ×2 (17:45→22:00)
[2020-07-25] MEDS: ATORVASTATIN 20 MG TAB PO SCH (21:54)
[2020-07-25 22:00] VITALS: BP 147/75
[2020-07-25] MEDS ORDERED: INSULIN LANTUS (GLARGINE) 1 /0.01ml (100units/ml) SC ONE (22:30)
[2020-07-26] MEDS: InsuLIN REG 1unit/0.01ml Soln (100units/ml) SC SCH ×6 (01:57→21:37)
[2020-07-26 05:00] VITALS: BP 135/72
[2020-07-26] MEDS: LEVOTHYROXINE SODIUM 25 MCG TAB PO SCH (06:11)
[2020-07-26] MEDS: FUROSEMIDE 100 MG/10ML VIAL IV SCH ×2 (06:11→17:58)
[2020-07-26] MEDS: ACCU-CHEK COMFORT CURVE STRIP VI SCH ×5 (06:12→21:33)
[2020-07-26] MEDS ORDERED: InsuLIN REG 1unit/0.01ml Soln (100units/ml) SC SCH (07:00)
[2020-07-26 08:49] VITALS: BP 144/72
[2020-07-26] MEDS: PANTOPRAZOLE 40 MG/10 ML VIAL INJ IV SCH (09:36)
[2020-07-26] MEDS: POTASSIUM EFFERVESENT TAB 25 MEQ PO SCH (09:37)
[2020-07-26] MEDS: methylPREDNISolone SOD SUCC 40 MG/ML VL IV SCH ×2 (09:37→21:39)
[2020-07-26] MEDS: DULoxetine HCL 30 MG CAP PO SCH (09:54)
[2020-07-26] MEDS: BACITRACIN TOP OINT 1 UD PKG TOP SCH ×2 (09:55→22:00)
[2020-07-26] MEDS ORDERED: INSULIN LANTUS (GLARGINE) 1 /0.01ml (100units/ml) SC SCH (10:00)
[2020-07-26] MEDS: ceFAZolin 1GM/50ML 50 ML IV SCH (12:01)
[2020-07-26 13:00] VITALS: BP 139/78
[2020-07-26 16:28] VITALS: BP 141/74
[2020-07-26] MEDS: ATORVASTATIN 20 MG TAB PO SCH (21:39)
[2020-07-26 22:00] VITALS: BP 146/77
[2020-07-27] MEDS: HYDROcodone-ACET 5/325MG TAB PO PRN (00:52)
[2020-07-27 05:00] VITALS: BP 146/68
[2020-07-27 05:37] LABS: Albumin 2.5 g/dL (3.4-5.0); Calcium 8.5 mg/dL (8.5-10.1); Potassium 4.6 mmol/L (3.5-5.1)
[2020-07-27 05:40] LABS: Bilirubin, Total 0.3 mg/dL (0.2-1.0); Total Protein 6.8 g/dL (6.4-8.2)
[2020-07-27] MEDS: ACCU-CHEK COMFORT CURVE STRIP VI SCH ×5 (06:04→22:03)
[2020-07-27] MEDS: FUROSEMIDE 100 MG/10ML VIAL IV SCH ×2 (06:09→18:33)
[2020-07-27] MEDS: InsuLIN REG 1unit/0.01ml Soln (100units/ml) SC SCH ×3 (06:09→22:07)
[2020-07-27] MEDS: LEVOTHYROXINE SODIUM 25 MCG TAB PO SCH (06:13)
[2020-07-27 08:44] VITALS: BP 145/73
[2020-07-27] MEDS ORDERED: InsuLIN REG 1unit/0.01ml Soln (100units/ml) SC ONE (09:15)
[2020-07-27] MEDS ORDERED: InsuLIN REG 1unit/0.01ml Soln (100units/ml) ONE (09:35)
[2020-07-27] MEDS: DULoxetine HCL 30 MG CAP PO SCH (09:48)
[2020-07-27] MEDS: POTASSIUM EFFERVESENT TAB 25 MEQ PO SCH (09:48)
[2020-07-27] MEDS: PANTOPRAZOLE 40 MG/10 ML VIAL INJ IV SCH (09:48)
[2020-07-27] MEDS: BACITRACIN TOP OINT 1 UD PKG TOP SCH ×2 (10:00→22:25)
[2020-07-27] MEDS ORDERED: INSULIN LANTUS (GLARGINE) 1 /0.01ml (100units/ml) SC SCH (10:00)
[2020-07-27] MEDS ORDERED: INSULIN LANTUS (GLARGINE) 1 /0.01ml (100units/ml) SC ONE (10:15)
[2020-07-27] MEDS ORDERED: InsuLIN REG 1unit/0.01ml Soln (100units/ml) SC SCH ×2 (11:30→22:00)
[2020-07-27] MEDS: ceFAZolin 1GM/50ML 50 ML IV SCH (12:13)
[2020-07-27] MEDS ORDERED: EPOETIN ALFA-EPBX 10,000 UNIT/1ML VIAL SC ONE (12:15)
[2020-07-27 12:53] VITALS: BP 139/74
[2020-07-27 17:00] VITALS: BP 146/78
[2020-07-27] MEDS: LOPERAMIDE HCL 2 MG CAP PO PRN ×2 (18:33→22:10)
[2020-07-27 22:00] VITALS: BP 150/88
[2020-07-27] MEDS: ATORVASTATIN 20 MG TAB PO SCH (22:09)
[2020-07-28] MEDS: ACCU-CHEK COMFORT CURVE STRIP VI SCH ×3 (01:48→10:05)
[2020-07-28] MEDS: InsuLIN REG 1unit/0.01ml Soln (100units/ml) SC SCH ×2 (01:51→05:50)
[2020-07-28 05:00] VITALS: BP 133/77
[2020-07-28] MEDS: FUROSEMIDE 100 MG/10ML VIAL IV SCH (05:49)
[2020-07-28 06:21] LABS: Albumin 2.3 g/dL (3.4-5.0); Calcium 8.4 mg/dL (8.5-10.1); Potassium 3.9 mmol/L (3.5-5.1)
[2020-07-28 06:25] LABS: BUN/Creatinine Ratio 9.7; Bilirubin, Total 0.2 mg/dL (0.2-1.0); Total Protein 6.1 g/dL (6.4-8.2)
[2020-07-28] MEDS: LEVOTHYROXINE SODIUM 25 MCG TAB PO SCH (06:26)
[2020-07-28 09:00] VITALS: BP 127/73
[2020-07-28] MEDS ORDERED: INSULIN LANTUS (GLARGINE) 1 /0.01ml (100units/ml) SC SCH ×3 (10:00)
[2020-07-28] MEDS: POTASSIUM EFFERVESENT TAB 25 MEQ PO SCH (10:05)
[2020-07-28] MEDS: DULoxetine HCL 30 MG CAP PO SCH (10:05)
[2020-07-28] MEDS: PANTOPRAZOLE 40 MG/10 ML VIAL INJ IV SCH (10:05)
[2020-07-28] MEDS ORDERED: InsuLIN REG 1unit/0.01ml Soln (100units/ml) SC SCH ×2 (11:30→22:00)
[2020-07-28] MEDS ORDERED: ACCU-CHEK COMFORT CURVE STRIP VI SCH (11:30)
[2020-07-28 12:46] VITALS: BP 133/74
[2020-07-28 13:00] VITALS: BP 133/74
== END 2020-07-28 15:05 | disposition home or self-care (01) | DRG 606 ==
LOC: ER 14:37 → TELE 18:58 → TELE-CENTR 20:30
PROVIDERS: ADMIT Nurse Practitioner; ATTEND Nurse Practitioner
DX: L23.9 Allergic contact dermatitis, unspecified cause (principal); N18.6 End stage renal disease; I12.0 Hypertensive chronic kidney disease with stage 5 chronic kidney disease or end stage renal disease; E44.0 Moderate protein-calorie malnutrition; E11.649 Type 2 diabetes mellitus with hypoglycemia without coma; E87.6 Hypokalemia; Z20.822 Contact with and (suspected) exposure to COVID-19; D63.1 Anemia in chronic kidney disease; E11.22 Type 2 diabetes mellitus with diabetic chronic kidney disease; E11.40 Type 2 diabetes mellitus with diabetic neuropathy, unspecified; E78.5 Hyperlipidemia, unspecified; E11.65 Type 2 diabetes mellitus with hyperglycemia; R60.0 Localized edema; M79.89 Other specified soft tissue disorders; M35.9 Systemic involvement of connective tissue, unspecified; Z99.2 Dependence on renal dialysis; Z88.1 Allergy status to other antibiotic agents; Z79.4 Long term (current) use of insulin; Z79.899 Other long term (current) drug therapy; Z83.3 Family history of diabetes mellitus; Y92.89 Other specified places as the place of occurrence of the external cause
CPT/HCPCS: 36415; 71045; 80053; 81001; 82306; 82785; 82962; 83036; 83880; 83970; 84100; 84132; 84443; 84484; 85025; 85610; 85652; 85730; 86141; 87081; 87426; 93970; C9113; G0378; J0690; J1815

== ENCOUNTER 2020-10-26 14:17 | Inpatient (IN) | payer OTHER, MEDICAID ==
[~2020-10-26] VITALS: Ht 165.1 cm; Wt 79.5 kg
[~2020-10-26 14:17] MED LIST changes: +B-CO1TAB33 PO; +CHOL1CAP58 PO; +DULO20CA PO; +FURO20TA3 PO; +POM PO
[2020-10-26 17:26] LABS: Basophils # (auto) 0.1 10 ^3/uL (0-0.2); Basophils % (auto) 0.9 % (0.0-2.0); Eosinophils # (auto) 0.5 10 ^3/uL (0-0.8); Eosinophils % (auto) 6.7 % (0.0-7.0); Hematocrit 34.7 % (36.0-46.0); Hemoglobin 11.6 g/dL (12.2-16.2); Lymphocytes # (auto) 1.6 10 ^3/uL (0.4-5.4); Mean Corpuscular Hemoglobin 29.7 pg (28.0-32.0); Mean Corpuscular Hgb Conc. 33.5 g/dL (32.0-36.0); Mean Corpuscular Volume 88.7 fL (80.0-100.0); Monocytes # (auto) 0.8 10 ^3/uL (0-1.3); Monocytes % (auto) 10.5 % (0.0-12.0); Neutrophils # (auto) 4.8 10 ^3/uL (1.6-8.6); Neutrophils % (auto) 61.9 % (37.0-80.0); Red Blood Cells 3.91 10^6/uL (4.0-5.20); Red Cell Distribution Width 13.4 % (11.8-14.3); White Blood Cell 7.8 10^3/uL (4.4-10.8)
[2020-10-26 17:40] LABS: Alanine Aminotransferase 38 U/L (13-56); Albumin 2.7 g/dL (3.4-5.0); Anion Gap 9 (5-15); Aspartate Aminotransferase 28 U/L (15-37); BUN/Creatinine Ratio 9.6; Blood Urea Nitrogen 52 mg/dL (7-18); Calcium 7.6 mg/dL (8.5-10.1); Carbon Dioxide 27 mmol/L (21-32); Chloride 103 mmol/L (98-107); GFR African American 11 mL/min; GFR Non-African American 9 mL/min; Glucose 208 mg/dL (74-106); Magnesium 2.3 mg/dL (1.6-2.6); Potassium 3.8 mmol/L (3.5-5.1); Sodium 139 mmol/L (136-145)
[2020-10-26 17:45] LABS: Alkaline Phosphatase 113 U/L (45-117); Bilirubin, Total 0.4 mg/dL (0.2-1.0)
[2020-10-26 20:02] LABS: Urine Bacteria NONE SEEN /hpf (None Seen); Urine Blood Negative /uL (Negative); Urine Specific Gravity 1.008 (1.001-1.035); Urine WBC 1 /hpf (0 - 5)
[2020-10-26] MEDS ORDERED: FUROSEMIDE 20 MG/2 ML VIAL IV ONE (21:45)
[2020-10-27] MEDS ORDERED: NITROGLYCERIN 0.4 MG SL TAB SL PRN (00:45)
[2020-10-27] MEDS ORDERED: ACETAMINOPHEN 325 MG TAB PO PRN (00:45)
[2020-10-27] MEDS ORDERED: ONDANSETRON HCL 4 MG/2 ML VIAL IV PRN (00:45)
[2020-10-27] MEDS ORDERED: TEMAZEPAM 15 MG CAP PO PRN (00:45)
[2020-10-27] MEDS ORDERED: MORPHINE SULFATE INJECTION 2 MG/2 ML SYRG IV PRN (00:45)
[2020-10-27] MEDS ORDERED: DOCUSATE SOD 100 MG CAP PO PRN (00:45)
[2020-10-27] MEDS ORDERED: CINA30TA2 PO (02:17)
[2020-10-27] MEDS ORDERED: SEVE800T10 PO (02:17)
[2020-10-27] MEDS ORDERED: AMLO-496 PO (02:17)
[2020-10-27] MEDS ORDERED: B CO PO (02:17)
[2020-10-27 04:38] VITALS: BP 147/84
[2020-10-27 05:00] VITALS: BP 147/84
[2020-10-27] MEDS: SODIUM CHLOR 0.9% PF (SALINE LOCK) 10ML VIAL/SYR IV SCH ×3 (06:09→22:06)
[2020-10-27] MEDS: InsuLIN REG 1unit/0.01ml Soln (100units/ml) SC SCH ×4 (06:10→22:08)
[2020-10-27] MEDS: ACCU-CHEK COMFORT CURVE STRIP VI SCH ×4 (06:10→22:10)
[2020-10-27] MEDS: SEVELAMER 800 MG TAB PO SCH ×3 (08:21→18:21)
[2020-10-27 09:00] VITALS: BP 127/69
[2020-10-27] MEDS: FUROSEMIDE 100 MG/10ML VIAL IV SCH ×2 (09:30→18:21)
[2020-10-27] MEDS: ASCORBIC ACID 500 MG TAB PO SCH ×2 (10:00→22:05)
[2020-10-27] MEDS: B-COMPLEX W/ C & FOLIC ACID(NEPHROVITE TAB) PO SCH (10:00)
[2020-10-27] MEDS ORDERED: FUROSEMIDE 20 MG/2 ML VIAL IV SCH (10:00)
[2020-10-27] MEDS: FAMOTIDINE (10MG/ML) 2ML VL IV SCH ×2 (10:00→22:05)
[2020-10-27] MEDS ORDERED: PERITONEAL DIALYSIS 2.5% SOLN 2,000 ML IP SCH (10:00)
[2020-10-27] MEDS: HEPARIN SODIUM (PORCINE) 5000 UNITS/ML 1ML VIAL SC SCH ×2 (10:00→22:07)
[2020-10-27] MEDS: POTASSIUM CHL 20 Meq TABLET PO SCH (10:00)
[2020-10-27] MEDS: ZINC SULFATE 220mg CAP or TAB PO SCH (10:00)
[2020-10-27 10:35] LABS: Basophils # (auto) 0.1 10 ^3/uL (0-0.2); Basophils % (auto) 0.7 % (0.0-2.0); Eosinophils # (auto) 0.6 10 ^3/uL (0-0.8); Eosinophils % (auto) 8.3 % (0.0-7.0); Hematocrit 31.8 % (36.0-46.0); Hemoglobin 10.6 g/dL (12.2-16.2); Lymphocytes # (auto) 1.3 10 ^3/uL (0.4-5.4); Lymphocytes % (auto) 18.1 % (10.0-50.0); Mean Corpuscular Hemoglobin 29.8 pg (28.0-32.0); Mean Corpuscular Hgb Conc. 33.5 g/dL (32.0-36.0); Mean Corpuscular Volume 89.1 fL (80.0-100.0); Monocytes # (auto) 0.6 10 ^3/uL (0-1.3); Monocytes % (auto) 9.1 % (0.0-12.0); Neutrophils # (auto) 4.4 10 ^3/uL (1.6-8.6); Neutrophils % (auto) 63.8 % (37.0-80.0); Red Blood Cells 3.57 10^6/uL (4.0-5.20); Red Cell Distribution Width 13.5 % (11.8-14.3)
[2020-10-27 11:01] LABS: Albumin 2.2 g/dL (3.4-5.0); Calcium 7.8 mg/dL (8.5-10.1); Potassium 3.5 mmol/L (3.5-5.1)
[2020-10-27 11:05] LABS: BUN/Creatinine Ratio 9.2; Bilirubin, Total 0.3 mg/dL (0.2-1.0); Total Protein 6.1 g/dL (6.4-8.2)
[2020-10-27 13:00] VITALS: BP 143/84
[2020-10-27 17:00] VITALS: BP 160/88
[2020-10-27] MEDS ORDERED: PERITONEAL DIALYSIS 2.5% IP SCH (18:00)
[2020-10-27 22:00] VITALS: BP 151/78
[2020-10-27] MEDS: INSULIN LANTUS (GLARGINE) 1 /0.01ml (100units/ml) SC SCH (22:10)
[2020-10-27] MEDS: hydrALAZINE HCL 20 MG/ML VL IV PRN (23:26)
[2020-10-28] MEDS ORDERED: METOCLOPRAMIDE HCL 5MG/ml INJ 2ml VIAL IV PRN (00:45)
[2020-10-28] MEDS ORDERED: InsuLIN REG 1unit/0.01ml Soln (100units/ml) SC ONE (00:45)
[2020-10-28] MEDS ORDERED: POTASSIUM CHL 20MEQ/100ML 100 ML IV ONE (00:45)
[2020-10-28 05:00] VITALS: BP 140/63
[2020-10-28 05:44] LABS: Basophils # (auto) 0.1 10 ^3/uL (0-0.2); Basophils % (auto) 0.8 % (0.0-2.0); Eosinophils # (auto) 0.1 10 ^3/uL (0-0.8); Eosinophils % (auto) 1.8 % (0.0-7.0); Hematocrit 32.3 % (36.0-46.0); Hemoglobin 10.9 g/dL (12.2-16.2); Lymphocytes # (auto) 0.7 10 ^3/uL (0.4-5.4); Lymphocytes % (auto) 9.1 % (10.0-50.0); Mean Corpuscular Hemoglobin 30.1 pg (28.0-32.0); Mean Corpuscular Hgb Conc. 33.7 g/dL (32.0-36.0); Mean Corpuscular Volume 89.2 fL (80.0-100.0); Monocytes # (auto) 0.4 10 ^3/uL (0-1.3); Monocytes % (auto) 5.4 % (0.0-12.0); Neutrophils # (auto) 6.1 10 ^3/uL (1.6-8.6); Neutrophils % (auto) 82.9 % (37.0-80.0); Red Blood Cells 3.62 10^6/uL (4.0-5.20); Red Cell Distribution Width 13.7 % (11.8-14.3); White Blood Cell 7.4 10^3/uL (4.4-10.8)
[2020-10-28 06:02] LABS: Potassium 4.2 mmol/L (3.5-5.1)
[2020-10-28 06:14] LABS: Albumin 2.4 g/dL (3.4-5.0); BUN/Creatinine Ratio 8.5; Bilirubin, Total 0.4 mg/dL (0.2-1.0); Calcium 8.3 mg/dL (8.5-10.1); Total Protein 6.4 g/dL (6.4-8.2)
[2020-10-28] MEDS: SODIUM CHLOR 0.9% PF (SALINE LOCK) 10ML VIAL/SYR IV SCH ×3 (06:49→21:46)
[2020-10-28] MEDS: ACCU-CHEK COMFORT CURVE STRIP VI SCH ×4 (06:49→21:48)
[2020-10-28] MEDS: FUROSEMIDE 100 MG/10ML VIAL IV SCH ×2 (06:49→17:55)
[2020-10-28] MEDS: INSULIN LANTUS (GLARGINE) 1 /0.01ml (100units/ml) SC SCH ×2 (06:50→22:55)
[2020-10-28 08:00] VITALS: BP 140/63
[2020-10-28] MEDS: InsuLIN REG 1unit/0.01ml Soln (100units/ml) SC SCH ×4 (08:52→22:00)
[2020-10-28] MEDS: HEPARIN SODIUM (PORCINE) 5000 UNITS/ML 1ML VIAL SC SCH ×3 (08:56→22:00)
[2020-10-28 09:00] VITALS: BP 141/60
[2020-10-28] MEDS: SEVELAMER 800 MG TAB PO SCH ×3 (09:04→17:55)
[2020-10-28] MEDS: ZINC SULFATE 220mg CAP or TAB PO SCH (09:05)
[2020-10-28] MEDS: B-COMPLEX W/ C & FOLIC ACID(NEPHROVITE TAB) PO SCH (09:05)
[2020-10-28] MEDS: FAMOTIDINE (10MG/ML) 2ML VL IV SCH ×2 (09:05→21:46)
[2020-10-28] MEDS: POTASSIUM CHL 20 Meq TABLET PO SCH (09:05)
[2020-10-28] MEDS: ASCORBIC ACID 500 MG TAB PO SCH ×2 (09:06→21:45)
[2020-10-28] MEDS ORDERED: DULoxetine HCL 30 MG CAP PO SCH ×2 (10:00)
[2020-10-28 10:57] LABS: Phosphorus 3.1 mg/dL (2.5-4.90); Uric Acid 6.1 mg/dL (2.6-6.0)
[2020-10-28 13:00] VITALS: BP 120/77
[2020-10-28] MEDS ORDERED: PERITONEAL DIALYSIS 4.25% SOLN 2,000 ML IP SCH (14:00)
[2020-10-28] MEDS: PERITONEAL DIALYSIS 2.5% SOLN 2,000 ML IP SCH ×3 (14:00→22:50)
[2020-10-28] MEDS ORDERED: PERITONEAL DIALYSIS 4.25% IP SCH (14:00)
[2020-10-28 17:00] VITALS: BP 130/63
[2020-10-28] MEDS: DULoxetine HCL 30 MG CAP PO SCH (21:46)
[2020-10-28 22:00] VITALS: BP 144/84
[2020-10-29] MEDS: PERITONEAL DIALYSIS 2.5% SOLN 2,000 ML IP SCH ×6 (02:00→22:30)
[2020-10-29 05:00] VITALS: BP 146/84
[2020-10-29] MEDS: ACCU-CHEK COMFORT CURVE STRIP VI SCH ×4 (06:07→22:30)
[2020-10-29] MEDS: SODIUM CHLOR 0.9% PF (SALINE LOCK) 10ML VIAL/SYR IV SCH ×3 (06:07→22:30)
[2020-10-29 06:18] LABS: Albumin 2.5 g/dL (3.4-5.0); Calcium 8.2 mg/dL (8.5-10.1); Potassium 4.1 mmol/L (3.5-5.1)
[2020-10-29 06:20] LABS: BUN/Creatinine Ratio 7.5
[2020-10-29 06:23] LABS: Bilirubin, Total 0.3 mg/dL (0.2-1.0); Total Protein 6.6 g/dL (6.4-8.2)
[2020-10-29] MEDS: FUROSEMIDE 100 MG/10ML VIAL IV SCH ×2 (06:27→19:06)
[2020-10-29] MEDS: INSULIN LANTUS (GLARGINE) 1 /0.01ml (100units/ml) SC SCH ×2 (06:28→22:30)
[2020-10-29] MEDS: InsuLIN REG 1unit/0.01ml Soln (100units/ml) SC SCH ×5 (06:28→22:30)
[2020-10-29 08:00] VITALS: BP 148/90
[2020-10-29] MEDS: SEVELAMER 800 MG TAB PO SCH ×3 (08:00→19:06)
[2020-10-29] MEDS: ZINC SULFATE 220mg CAP or TAB PO SCH ×2 (09:33→10:29)
[2020-10-29] MEDS: POTASSIUM CHL 20 Meq TABLET PO SCH ×2 (09:33→10:29)
[2020-10-29] MEDS: ASCORBIC ACID 500 MG TAB PO SCH ×3 (09:33→22:30)
[2020-10-29] MEDS: B-COMPLEX W/ C & FOLIC ACID(NEPHROVITE TAB) PO SCH ×2 (09:33→10:28)
[2020-10-29] MEDS: FAMOTIDINE (10MG/ML) 2ML VL IV SCH ×2 (10:29→22:30)
[2020-10-29] MEDS: HEPARIN SODIUM (PORCINE) 5000 UNITS/ML 1ML VIAL SC SCH ×2 (10:48→22:00)
[2020-10-29 11:49] VITALS: BP 168/98
[2020-10-29] MEDS: hydrALAZINE HCL 20 MG/ML VL IV PRN (12:39)
[2020-10-29 16:00] VITALS: BP 135/81
[2020-10-29 22:00] VITALS: BP 148/87
[2020-10-29] MEDS: DULoxetine HCL 30 MG CAP PO SCH (22:30)
[2020-10-30] MEDS: PERITONEAL DIALYSIS 2.5% SOLN 2,000 ML IP SCH ×6 (02:30→22:50)
[2020-10-30] MEDS: DEXTROSE (50%) 50ML SYRG IV PRN (03:10)
[2020-10-30 05:00] VITALS: BP 134/71
[2020-10-30] MEDS: FUROSEMIDE 100 MG/10ML VIAL IV SCH ×2 (06:21→18:29)
[2020-10-30] MEDS: INSULIN LANTUS (GLARGINE) 1 /0.01ml (100units/ml) SC SCH ×2 (06:22→22:54)
[2020-10-30] MEDS: ACCU-CHEK COMFORT CURVE STRIP VI SCH ×4 (06:22→22:51)
[2020-10-30] MEDS: InsuLIN REG 1unit/0.01ml Soln (100units/ml) SC SCH ×5 (06:22→22:00)
[2020-10-30] MEDS: SODIUM CHLOR 0.9% PF (SALINE LOCK) 10ML VIAL/SYR IV SCH ×3 (06:22→20:57)
[2020-10-30 06:51] LABS: Albumin 2.5 g/dL (3.4-5.0); Bilirubin, Total 0.4 mg/dL (0.2-1.0); Calcium 8.6 mg/dL (8.5-10.1); Total Protein 6.7 g/dL (6.4-8.2)
[2020-10-30 07:26] LABS: Basophils # (auto) 0 10 ^3/uL (0-0.2); Basophils % (auto) 0.8 % (0.0-2.0); Eosinophils # (auto) 0.5 10 ^3/uL (0-0.8); Hematocrit 35.3 % (36.0-46.0); Hemoglobin 11.8 g/dL (12.2-16.2); Lymphocytes # (auto) 1.2 10 ^3/uL (0.4-5.4); Lymphocytes % (auto) 21.9 % (10.0-50.0); Mean Corpuscular Hemoglobin 29.9 pg (28.0-32.0); Mean Corpuscular Hgb Conc. 33.5 g/dL (32.0-36.0); Mean Corpuscular Volume 89.3 fL (80.0-100.0); Monocytes # (auto) 0.8 10 ^3/uL (0-1.3); Monocytes % (auto) 14.2 % (0.0-12.0); Neutrophils % (auto) 54.1 % (37.0-80.0); Nucleated Red Blood Cells % 0.1 %; Red Blood Cells 3.95 10^6/uL (4.0-5.20); Red Cell Distribution Width 13.9 % (11.8-14.3); White Blood Cell 5.5 10^3/uL (4.4-10.8)
[2020-10-30] MEDS: SEVELAMER 800 MG TAB PO SCH ×4 (08:00→18:22)
[2020-10-30 08:22] VITALS: BP 130/79
[2020-10-30 09:30] LABS: INR 1.07 (0.9-1.15)
[2020-10-30] MEDS: HEPARIN SODIUM (PORCINE) 5000 UNITS/ML 1ML VIAL SC SCH ×2 (10:00→21:20)
[2020-10-30] MEDS: ASCORBIC ACID 500 MG TAB PO SCH ×2 (10:00→20:48)
[2020-10-30] MEDS: FAMOTIDINE (10MG/ML) 2ML VL IV SCH ×2 (10:00→20:47)
[2020-10-30] MEDS ORDERED: MIDAZOLAM HCL 2MG/2ML 2ml VIAL (1mg/ml) ONE (10:12)
[2020-10-30] MEDS ORDERED: fentaNYL CITRATE 100 MCG/2 ML VL ONE (10:12)
[2020-10-30] MEDS ORDERED: LIDOCAINE 2%HCL (LOCAL ANESTH.) INJ 20ML MDV ONE ×2 (10:31→11:11)
[2020-10-30] MEDS ORDERED: HEPARIN SODIUM (PORCINE) 5000 UNITS/ML 1ML VIAL ONE (11:10)
[2020-10-30] MEDS: ZINC SULFATE 220mg CAP or TAB PO SCH (13:07)
[2020-10-30] MEDS: POTASSIUM CHL 20 Meq TABLET PO SCH (13:07)
[2020-10-30] MEDS: HYDROcodone-ACET 5/325MG TAB PO PRN ×2 (13:08→20:48)
[2020-10-30] MEDS: B-COMPLEX W/ C & FOLIC ACID(NEPHROVITE TAB) PO SCH (13:08)
[2020-10-30 16:24] VITALS: BP 135/71
[2020-10-30] MEDS: DULoxetine HCL 30 MG CAP PO SCH (20:48)
[2020-10-30 22:00] VITALS: BP 129/70
[2020-10-31] MEDS: PERITONEAL DIALYSIS 2.5% SOLN 2,000 ML IP SCH ×5 (02:29→22:25)
[2020-10-31 05:00] VITALS: BP 120/75
[2020-10-31] MEDS: FUROSEMIDE 100 MG/10ML VIAL IV SCH ×2 (06:20→17:43)
[2020-10-31] MEDS: SODIUM CHLOR 0.9% PF (SALINE LOCK) 10ML VIAL/SYR IV SCH ×3 (06:21→22:07)
[2020-10-31] MEDS: ACCU-CHEK COMFORT CURVE STRIP VI SCH ×4 (06:22→22:12)
[2020-10-31] MEDS: InsuLIN REG 1unit/0.01ml Soln (100units/ml) SC SCH ×4 (06:36→22:11)
[2020-10-31] MEDS: INSULIN LANTUS (GLARGINE) 1 /0.01ml (100units/ml) SC SCH ×2 (06:36→22:12)
[2020-10-31] MEDS: SEVELAMER 800 MG TAB PO SCH ×3 (07:53→17:44)
[2020-10-31] MEDS: B-COMPLEX W/ C & FOLIC ACID(NEPHROVITE TAB) PO SCH (08:40)
[2020-10-31] MEDS: ZINC SULFATE 220mg CAP or TAB PO SCH (08:41)
[2020-10-31] MEDS: ASCORBIC ACID 500 MG TAB PO SCH ×2 (08:41→22:07)
[2020-10-31] MEDS: POTASSIUM CHL 20 Meq TABLET PO SCH (08:41)
[2020-10-31] MEDS: FAMOTIDINE (10MG/ML) 2ML VL IV SCH ×2 (08:42→22:06)
[2020-10-31] MEDS: HEPARIN SODIUM (PORCINE) 5000 UNITS/ML 1ML VIAL SC SCH ×2 (08:52→22:10)
[2020-10-31 09:00] VITALS: BP 150/82
[2020-10-31] MEDS: DEXTROSE (50%) 50ML SYRG IV PRN (10:56)
[2020-10-31 13:00] VITALS: BP 181/98
[2020-10-31 17:00] VITALS: BP 159/85
[2020-10-31 22:00] VITALS: BP 119/77
[2020-10-31] MEDS: DULoxetine HCL 30 MG CAP PO SCH (22:07)
[2020-10-31] MEDS: HYDROcodone-ACET 5/325MG TAB PO PRN (23:26)
[2020-11-01] MEDS: PERITONEAL DIALYSIS 2.5% SOLN 2,000 ML IP SCH ×8 (02:20→22:23)
[2020-11-01 05:00] VITALS: BP 138/78
[2020-11-01] MEDS: InsuLIN REG 1unit/0.01ml Soln (100units/ml) SC SCH ×4 (06:17→21:52)
[2020-11-01] MEDS: FUROSEMIDE 100 MG/10ML VIAL IV SCH ×2 (06:18→18:54)
[2020-11-01] MEDS: SODIUM CHLOR 0.9% PF (SALINE LOCK) 10ML VIAL/SYR IV SCH ×3 (06:18→21:52)
[2020-11-01] MEDS: ACCU-CHEK COMFORT CURVE STRIP VI SCH ×4 (06:23→21:53)
[2020-11-01] MEDS: INSULIN LANTUS (GLARGINE) 1 /0.01ml (100units/ml) SC SCH ×2 (06:32→21:53)
[2020-11-01] MEDS: SEVELAMER 800 MG TAB PO SCH ×3 (08:14→18:53)
[2020-11-01 09:00] VITALS: BP 148/83
[2020-11-01] MEDS: FAMOTIDINE (10MG/ML) 2ML VL IV SCH ×2 (09:18→21:51)
[2020-11-01] MEDS: B-COMPLEX W/ C & FOLIC ACID(NEPHROVITE TAB) PO SCH (09:19)
[2020-11-01] MEDS: ASCORBIC ACID 500 MG TAB PO SCH ×2 (09:19→21:52)
[2020-11-01] MEDS: POTASSIUM CHL 20 Meq TABLET PO SCH (09:19)
[2020-11-01] MEDS: ZINC SULFATE 220mg CAP or TAB PO SCH (09:19)
[2020-11-01] MEDS: HEPARIN SODIUM (PORCINE) 5000 UNITS/ML 1ML VIAL SC SCH ×2 (09:20→21:54)
[2020-11-01] MEDS: HYDROcodone-ACET 5/325MG TAB PO PRN (10:27)
[2020-11-01 12:54] LABS: Hepatitis A Ab IgM Negative; Hepatitis B Core IgM Negative; Hepatitis B Surface Antigen Negative (Negative); Hepatitis C Antibody Negative (Negative)
[2020-11-01 13:00] VITALS: BP 135/80
[2020-11-01] MEDS ORDERED: SODIUM CHL 0.9% 1000 ML BAG XX ONE (13:00)
[2020-11-01 17:00] VITALS: BP 134/84
[2020-11-01] MEDS: DULoxetine HCL 30 MG CAP PO SCH (21:52)
[2020-11-01 22:00] VITALS: BP 152/90
[2020-11-02] MEDS: DEXTROSE (50%) 50ML SYRG IV PRN (01:12)
[2020-11-02] MEDS: hydrALAZINE HCL 20 MG/ML VL IV PRN (03:41)
[2020-11-02 05:00] VITALS: BP 180/103
[2020-11-02] MEDS: SODIUM CHLOR 0.9% PF (SALINE LOCK) 10ML VIAL/SYR IV SCH ×2 (05:15→14:00)
[2020-11-02] MEDS: FUROSEMIDE 100 MG/10ML VIAL IV SCH (05:16)
[2020-11-02] MEDS: INSULIN LANTUS (GLARGINE) 1 /0.01ml (100units/ml) SC SCH (06:15)
[2020-11-02] MEDS: ACCU-CHEK COMFORT CURVE STRIP VI SCH ×3 (06:15→17:25)
[2020-11-02] MEDS: InsuLIN REG 1unit/0.01ml Soln (100units/ml) SC SCH ×3 (06:15→17:00)
[2020-11-02] MEDS: SEVELAMER 800 MG TAB PO SCH ×2 (08:43→13:54)
[2020-11-02 09:00] VITALS: BP 122/60
[2020-11-02] MEDS: B-COMPLEX W/ C & FOLIC ACID(NEPHROVITE TAB) PO SCH (09:53)
[2020-11-02] MEDS: POTASSIUM CHL 20 Meq TABLET PO SCH (09:54)
[2020-11-02] MEDS: FAMOTIDINE (10MG/ML) 2ML VL IV SCH (09:54)
[2020-11-02] MEDS: ASCORBIC ACID 500 MG TAB PO SCH (09:54)
[2020-11-02] MEDS: ZINC SULFATE 220mg CAP or TAB PO SCH (09:54)
[2020-11-02] MEDS: HEPARIN SODIUM (PORCINE) 5000 UNITS/ML 1ML VIAL SC SCH (09:55)
[2020-11-02] MEDS: PERITONEAL DIALYSIS 2.5% SOLN 2,000 ML IP SCH ×2 (11:53→14:00)
[2020-11-02 13:00] VITALS: BP 152/92
[2020-11-02 16:20] VITALS: BP 156/87
[2020-11-02] MEDS: DULoxetine HCL 30 MG CAP PO SCH (16:43)
[2020-11-05 08:40] LABS: Hepatitis B Surface Antibody Negative
[2020-11-05 09:16] LABS: Hepatitis A Total Antibody Positive
[2020-11-05 09:40] LABS: Hepatitis B Core Total AB Negative; Hepatitis B Surface Antigen Negative (Negative); Hepatitis C Antibody Negative (Negative)
== END 2020-11-02 18:20 | disposition home or self-care (01) | DRG 673 ==
LOC: EDBD 14:17 → ER 14:17 → TELE-CENTR 10-27 00:41
PROVIDERS: ADMIT Nurse Practitioner Family; ATTEND Internal Medicine
PROC: 3E1M39Z Irrigation of Peritoneal Cavity using Dialysate, Percutaneous Approach (ICD-10-PCS; 2020-10-28)
PROC: 3E1M39Z Irrigation of Peritoneal Cavity using Dialysate, Percutaneous Approach (ICD-10-PCS; 2020-10-29)
PROC: 0JH63XZ Insertion of Tunneled Vascular Access Device into Chest Subcutaneous Tissue and Fascia, Percutaneous Approach (ICD-10-PCS; principal; 2020-10-30)
PROC: 02H633Z Insertion of Infusion Device into Right Atrium, Percutaneous Approach (ICD-10-PCS; 2020-10-30)
PROC: 3E1M39Z Irrigation of Peritoneal Cavity using Dialysate, Percutaneous Approach (ICD-10-PCS; 2020-10-30)
PROC: B548ZZA Ultrasonography of Superior Vena Cava, Guidance (ICD-10-PCS; 2020-10-30)
PROC: B5181ZA Fluoroscopy of Superior Vena Cava using Low Osmolar Contrast, Guidance (ICD-10-PCS; 2020-10-30)
PROC: 3E1M39Z Irrigation of Peritoneal Cavity using Dialysate, Percutaneous Approach (ICD-10-PCS; 2020-10-31)
PROC: 3E1M39Z Irrigation of Peritoneal Cavity using Dialysate, Percutaneous Approach (ICD-10-PCS; 2020-11-01)
PROC: 5A1D70Z Performance of Urinary Filtration, Intermittent, Less than 6 Hours Per Day (ICD-10-PCS; 2020-11-01)
DX: I12.0 Hypertensive chronic kidney disease with stage 5 chronic kidney disease or end stage renal disease (principal); J96.21 Acute and chronic respiratory failure with hypoxia; N18.6 End stage renal disease; J81.0 Acute pulmonary edema; E87.70 Fluid overload, unspecified; Z20.822 Contact with and (suspected) exposure to COVID-19; E11.21 Type 2 diabetes mellitus with diabetic nephropathy; E11.40 Type 2 diabetes mellitus with diabetic neuropathy, unspecified; E88.09 Other disorders of plasma-protein metabolism, not elsewhere classified; D63.1 Anemia in chronic kidney disease; E11.65 Type 2 diabetes mellitus with hyperglycemia; E03.9 Hypothyroidism, unspecified; D63.8 Anemia in other chronic diseases classified elsewhere; E11.22 Type 2 diabetes mellitus with diabetic chronic kidney disease; E11.649 Type 2 diabetes mellitus with hypoglycemia without coma; Z83.3 Family history of diabetes mellitus; Z88.1 Allergy status to other antibiotic agents; Z99.2 Dependence on renal dialysis; Z88.8 Allergy status to other drugs, medicaments and biological substances; Z79.899 Other long term (current) drug therapy
CPT/HCPCS: 36415; 36561; 71045; 76000; 76942; 77001; 80053; 80061; 80074; 81001; 82306; 82962; 83036; 83735; 83880; 83970; 84100; 84443; 84484; 84550; 84702; 85025; 85610; 86704; 86706; 86708; 86803; 87340; 87426; 90935; 93005; 96374; 99152; 99153; G0378; J1642; J1815; J2250; J2405; J3480; J3490

== ENCOUNTER 2021-05-24 18:36 | Emergency (ER) | payer OTHER, MEDICAID ==
[~2021-05-24] VITALS: Ht 165.1 cm; Wt 63.0 kg
[~2021-05-24 18:36] MED LIST changes: +AMLO-496 PO; +B CO PO; +CINA30TA2 PO; -LISI20TA28 PO; +SEVE800T10 PO
[2021-05-24] MEDS ORDERED: SODIUM CHLORIDE 0.9% 500 ML IV ONE (19:00)
[2021-05-24] MEDS ORDERED: KETOROLAC TROMETH 30 MG/ML 1ML VIAL IV ONE (19:00)
[2021-05-24 20:02] LABS: Albumin 3.5 g/dL (3.4-5.0); Calcium 8.2 mg/dL (8.5-10.1); Potassium 4.3 mmol/L (3.5-5.1)
[2021-05-24 20:06] LABS: BUN/Creatinine Ratio 4.2; Bilirubin, Total 0.4 mg/dL (0.2-1.0)
[2021-05-24 20:17] LABS: Basophils # (auto) 0.1 10 ^3/uL (0-0.2); Basophils % (auto) 0.5 % (0.0-2.0); Eosinophils # (auto) 0.4 10 ^3/uL (0-0.8); Eosinophils % (auto) 3.2 % (0.0-7.0); Hematocrit 39.4 % (36.0-46.0); Hemoglobin 12.7 g/dL (12.2-16.2); Lymphocytes # (auto) 1.3 10 ^3/uL (0.4-5.4); Lymphocytes % (auto) 9.5 % (10.0-50.0); Mean Corpuscular Hemoglobin 29.1 pg (28.0-32.0); Mean Corpuscular Hgb Conc. 32.2 g/dL (32.0-36.0); Mean Corpuscular Volume 90.2 fL (80.0-100.0); Monocytes # (auto) 0.6 10 ^3/uL (0-1.3); Monocytes % (auto) 4.8 % (0.0-12.0); Neutrophils # (auto) 10.9 10 ^3/uL (1.6-8.6); Nucleated Red Blood Cells % 0.1 %; Red Blood Cells 4.37 10^6/uL (4.0-5.20); White Blood Cell 13.3 10^3/uL (4.4-10.8)
[2021-05-24] MEDS ORDERED: ACE650RS PO (21:51)
[2021-05-24 22:05] VITALS: BP 175/85
== END 2021-05-24 22:07 | disposition home or self-care (01) ==
LOC: EDBD 18:36 → ER 18:38
DX: S20.212A Contusion of left front wall of thorax, initial encounter (principal); I12.0 Hypertensive chronic kidney disease with stage 5 chronic kidney disease or end stage renal disease; E11.22 Type 2 diabetes mellitus with diabetic chronic kidney disease; N18.6 End stage renal disease; Z79.4 Long term (current) use of insulin; Z79.899 Other long term (current) drug therapy; Z88.8 Allergy status to other drugs, medicaments and biological substances; Z88.1 Allergy status to other antibiotic agents; X58.XXXA Exposure to other specified factors, initial encounter; Y93.89 Activity, other specified; Y92.89 Other specified places as the place of occurrence of the external cause; Y99.8 Other external cause status
CPT/HCPCS: 36415; 71101; 80053; 85025; 93005; 96361; 96374; 99285; J1885; J7040

== ENCOUNTER 2021-12-18 13:38 | Emergency (ER) | payer OTHER, MEDICAID ==
[~2021-12-18] VITALS: Ht 165.1 cm; Wt 60.1 kg
[~2021-12-18 13:38] MED LIST changes: +ACE650RS PO
[2021-12-18 14:30] VITALS: BP 103/68
[2021-12-18 14:58] LABS: Basophils # (auto) 0 10 ^3/uL (0-0.2); Basophils % (auto) 0.6 % (0.0-2.0); Eosinophils # (auto) 0.1 10 ^3/uL (0-0.8); Eosinophils % (auto) 0.9 % (0.0-7.0); Hematocrit 42.9 % (36.0-46.0); Hemoglobin 13.5 g/dL (12.2-16.2); Lymphocytes # (auto) 0.9 10 ^3/uL (0.4-5.4); Lymphocytes % (auto) 14.6 % (10.0-50.0); Mean Corpuscular Hemoglobin 29.6 pg (28.0-32.0); Mean Corpuscular Hgb Conc. 31.6 g/dL (32.0-36.0); Mean Corpuscular Volume 93.9 fL (80.0-100.0); Monocytes # (auto) 0.5 10 ^3/uL (0-1.3); Monocytes % (auto) 8.8 % (0.0-12.0); Neutrophils # (auto) 4.5 10 ^3/uL (1.6-8.6); Neutrophils % (auto) 75.1 % (37.0-80.0); Red Blood Cells 4.57 10^6/uL (4.0-5.20); Red Cell Distribution Width 13.5 % (11.8-14.3)
[2021-12-18 15:13] LABS: Albumin 3.3 g/dL (3.4-5.0); BUN/Creatinine Ratio 19.3; Calcium 8.5 mg/dL (8.5-10.1); Potassium 3.8 mmol/L (3.5-5.1)
[2021-12-18 15:16] LABS: Bilirubin, Total 0.3 mg/dL (0.2-1.0); Total Protein 6.2 g/dL (6.4-8.2)
[2021-12-18] MEDS ORDERED: SODIUM CHLORIDE 0.9% 1,000 ML IV ONE (16:15)
== END 2021-12-18 17:43 | disposition left against medical advice (07) ==
LOC: ER 13:38
DX: R19.7 Diarrhea, unspecified (principal); N18.9 Chronic kidney disease, unspecified; Z79.899 Other long term (current) drug therapy; Z88.1 Allergy status to other antibiotic agents; Z88.8 Allergy status to other drugs, medicaments and biological substances; Z91.018 Allergy to other foods
CPT/HCPCS: 36415; 80053; 85025

== ENCOUNTER 2025-01-05 09:37 | Emergency (ER) | payer OTHER, MEDICAID ==
[~2025-01-05] VITALS: Ht 162.6 cm; Wt 85.0 kg
[~2025-01-05 09:37] MED LIST changes: -AMLO-496 PO; +AMLO1TAB23 PO
[2025-01-05] MEDS: HYDROcodone-ACET 10/325MG TAB PO ONE (10:22)
[2025-01-05 10:31] VITALS: BP 144/89; PULSE 79; RESP 18; TEMP 98.2
--- NOTE | 2025-01-05 10:37 | DVH ---
XY R KNEE 2V XRAY, INDICATION: fall TECHNICAL DATA: Frontal , and lateral views were obtained of the right knee. COMPARISON: None FINDINGS: No fracture is identified. Medial, lateral and patellofemoral compartment joint spaces are maintained . Alignment is anatomic. Soft tissues are within normal limits. No joint effusion is demonstrated. IMPRESSION: No acute fracture or dislocation of the right knee.
[2025-01-05] MEDS ORDERED: IBU600T PO (12:05)
--- NOTE | 2025-01-05 12:05 | ED.PDOC ---
History of Present Illness HPI Comments 49-year-old female came to the ER because she fell while walking to the hospital this morning. She fell landing on right knee causing right knee pain. She does have a history of right foot fracture for which she is wearing a boot. She denies any loss of consciousness denies any other symptoms. Chief Complaint: Lower Extremity Time Seen by MD: 09:47 Primary Care Provider: ERASMO Reviewed Notes: Nurses Notes, Medications, Allergies Allergies: Coded Allergies: Ibuprofen (Verified Allergy, Severe, 07/24/20) Vancomycin (Verified Allergy, Unknown, 07/24/20) Uncoded Allergies: BLOOD THINNERS (Allergy, Severe, 08/13/16) DAIRY (Allergy, Severe, 07/24/20) Home Meds Active Scripts Ibuprofen Micronized (MOTRIN TABLET) 600 Mg Tb, 600 MG PO TID PRN for 3 Days, #9 TAB *Black box warning-NSAIDS can increase risk of ND & hypertension, GI irritation, ulceration, bleed, perferation. Do not use post cardiac surgery. Use short duration/lowest effective dose. Prov:BURAK STAHL MD 01/05/25 Acetaminophen (Tylenol) 650 Mg Rc, 650 MG PO Q6HR for 20 Days, #80 TAB 2 Refills Prov:LUIS FAUSTIN MD 05/24/21 Reported Medications Cinacalcet Hydrochloride (Sensipar) 30 Mg Tab, 1 TAB PO DAILY, #30 TAB 11 Refills 10/27/20 Amlodipine Besylate (Amlodipine Besylate) 10 Mg Tab, 1 TAB PO DAILYPRN 10/27/20 Sevelamer Carbonate (Sevelamer Carbonate) 800 Mg Tab, 3 TAB PO BID 10/27/20 B-Complex W/ C & Folic Acid (Applications Programmer Analyst-Samy Rx 1 mg) 1 Tab Tab, 1 TAB PO QAM 10/27/20 Cholecalciferol (Vitamin D3 1.25 mg (68318 Ut)) 1 Cap Cap, 1 CAP PO, CAP 07/24/20 Patients Own Medication (PATIENTS OWN MEDICATION) ., 10 PO AC PTS OWN MED-OBTAIN FROM PT AND SEND TO RX DRUG:Domperidone FREQ:With Meals RX# EXP: DATE DISP: TECH: RPH: 07/24/20 B-Complex W/ C & Folic Acid (Nephro-Samy Rx) 1 Tab Tb, 1 TAB PO DAILY, TAB 07/24/20 Duloxetine Hcl (Cymbalta) 20 Mg Cap, 1 CAP PO DAILY, #30 CAP 2 Refills 07/24/20 Furosemide (Furosemide) 20 Mg Tab, 20 MG PO DAILY for 30 Days, MG 07/24/20 Levothyroxine Sodium (Levothyroxine Sodium) 25 Mcg Tab, 1 TAB PO DAILY, #30 TAB 5 Refills 10/11/18 Atorvastatin Calcium (ATORVASTATIN CALCIUM) 20 Mg Tab, 30 MG PO HS, TAB 10/11/18 Insulin Lispro (Human) (Humalog) 100 Unit/Ml Inj, 0.6 UNIT SC, INJ 10/11/18 Information Source: Patient Mode of Arrival: Wheelchair Severity: Mild Timing: Hours Duration: Since onset Past Medical History PAST MEDICAL HISTORY: CKF Surgical History: Denies all surgeries CLINIC OFFICE COORDINATOR History: No Pertinent CLINIC OFFICE COORDINATOR History Family History Family History: Reviewed,noncontributory to illness Social History Smoker: Non-Smoker Alcohol: Denies ETOH Use Drugs: Denies Drug Use Lives In: Home Constitutional: denies: chills, diaphoresis, fatigue, fever, malaise, sweats, weakness, others EENTM: denies: blurred vision, double vision, ear bleeding, ear discharge, ear drainage, ear pain, ear ringing, eye pain, eye redness, hearing loss, mouth pain, mouth swelling, nasal discharge, nose bleeding, nose congestion, nose pain, photophobia, tearing, throat pain, throat swelling, voice changes, others Respiratory: denies: cough, hemoptysis, orthopnea, SOB at rest, shortness of breath, SOB with excertion, stridor, wheezing, others Cardiovascular: denies: chest pain, dizzy spells, diaphoresis, Dyspnea on exertion, edema, irregular heart beat, left arm pain, lightheadedness, palpitations, PND, syncope, others Gastrointestinal: denies: abdomen distended, abdominal pain, blood streaked bowels, constipated, diarrhea, dysphagia, difficulty swallowing, hematemesis, melena, nausea, poor appetite, poor fluid intake, rectal bleeding, rectal pain, vomiting, others Genitourinary: denies: abnormal vagina bleeding, burning, dyspareunia, dysuria, flank pain, frequency, hematuria, incontinence, pain, , vagina discharge, urgency, others Neurological: denies: dizziness, fainting, headache, left sided numbness, left sided weakness, numbness, paresthesia, pre-existing deficit, right sided numbness, right sided weakness, seizure, speech problems, tingling, tremors, weakness, others Musculoskeletal: reports: joint pain (Right knee); denies: back pain, gout, j oint swelling, muscle pain, muscle stiffness, neck pain, others Integumetry: denies: bruises, change in color, change in hair/nails, dryness, laceration, lesions, lumps, rash, wounds, others Allergic/Immunocompromised: denies: Difficulty Healing, Frequent Infections, Hives, Itching, others Hematologic/Lymphatic: denies: anemia, blood clots, easy bleeding, easy bruising, swollen glands, others Endocrine: denies: excessive hunger, excessive sweating, excessive thirst, excessive urination, flushing, intolerance to cold, intolerance to heat, unexplained weight gain, unexplained weight loss, others Psychiatric: denies: anxiety, bipolar disorder, depression, hopeless, panic disorder, schizophrenia, sleepless, suicidal, others Physical Exam General Appearance: Moderate Distress HEENT: Normal ENT Inspection, Pharynx Normal, TMs Normal Neck: Full Range of Motion, Non-Tender, Normal, Normal Inspection Respiratory: Chest Non-Tender, Lungs Clear, No Accessory Muscle Use, No Respiratory Distress, Normal Breath Sounds Cardiovascular: No Edema, No JVD, No Murmur, No Gallop, Normal Peripheral Pulses, Regular Rate/Rhythm Breast Exam: Deferred Gastrointestinal: No Organomegaly, Non Tender, No Pulsatile Mass, Normal Bowel Sounds, Soft Genitalia: Deferred Pelvic: Deferred Rectal: Deferred Extremities: No calf tenderness, Normal capillary refill, Normal inspection, Normal range of motion, Non-tender, No pedal edema Musculoskeletal : Apperance: Normal Neurologic: Alert, sap crm developer II-XII nml as Tested, No Motor Deficits, Normal Affect, Normal Mood, No Sensory Deficits Cerebellar Function: Normal Reflexes: Normal Skin: Dry, Normal Color, Warm, Other (Right boot) Peripheral Pulses: 3+ Radial (R), 3+ Radial (L) Lymphatic: No Adenopathy Was a procedure done? Was a procedure done?: No Differential Dx Considerations may include: Muscle strain X-Ray, Labs, Meds, VS Vital Signs Date Time Temp Pulse Resp B/P (MAP) Pulse Ox O2 Delivery O2 Flow Rate FiO2 01/05/25 12:08 98 Room Air* 0 21 01/05/25 10:31 79 18 95 Room Air 01/05/25 10:31 98.2 79 18 144/89 (107) 95 98.2 01/05/25 09:38 98.0 80 16 161/95 95 98.0 Current Medications Medications (Trade) Dose Ordered Sig/Yanick Route Start Time Stop Time Status Last Admin Acetaminophen/ Hydrocodone Bitart ([place] 10/325MG Tab) 1 tab ONCE ONCE PO 01/05/25 10:00 01/05/25 10:01 DC 01/05/25 10:22 Patient alert. Status post fall. X-ray of the right knee does not show any acute fractures. Vitals stable. Answering questions. Moving all extremities. Was given pain medication. Was given prescription of Motrin. Explained to the patient. No acute process. Was told to follow up with her primary care physician. Was told to come back if there is any problem. Time of 1ST Reevaluation: 12:03 Reevaluation 1ST: Improved Patient Education/Counseling: Diagnosis, Treatment, Prognosis, Need For Follow Up Family Education/Counseling: No Family Present SEPSIS Sepsis Screen Date sepsis recognized/suspect: Jan 05, 2025 Time Sepsis recognized/suspect: 938 Recent Procedure: No On Antibiotic Therapy: No Respiratory Rate >20: No Heart Rate >90: No Temp<36 C (96.8 F) or >38.3 C: No SBP <90 or MAP <65 mmHG: No New Acute Mental Status Change: No Is the patient on CPAP, BIPAP,: No Physician Orders R Knee 2v Xray (01/05/25 09:52) Vital Signs Date Time Temp Pulse Resp B/P (MAP) Pulse Ox O2 Delivery O2 Flow Rate FiO2 01/05/25 12:08 98 Room Air* 0 21 01/05/25 10:31 79 18 95 Room Air 01/05/25 10:31 98.2 79 18 144/89 (107) 95 98.2 01/05/25 09:38 98.0 80 16 161/95 95 98.0 Medications Medications Dose Ordered Sig/Yanick Route Start Time Stop Time Status Last Admin Dose Admin Acetaminophen/ Hydrocodone Bitart 1 tab ONCE ONCE PO 01/05/25 10:00 10/16/25 10:01 DC 01/05/25 10:22 Departure 1 Departure Time of Disposition: 12:04 Impression: Primary Impression: Musculoskeletal pain Disposition: 01 HOME / SELF CARE / HOMELESS Condition: Good e-Prescriptions Ibuprofen Micronized (MOTRIN TABLET) 600 Mg Tb 600 MG PO TID PRN for 3 Days, #9 TAB *Black box warning-NSAIDS can increase risk of ND & hypertension, GI irritation, ulceration, bleed, perferation. Do not use post cardiac surgery. Use short duration/lowest effective dose. Prov: BURAK STAHL MD 01/05/25 Discharged With: Self Critical Care Note Critical Care Time?: No Stability Stability form required: No Heart Score Heart Score: Heart Score Response (Comments) Value History N/A 0 EKG N/A 0 Age N/A 0 Risk Factors N/A 0 Troponin N/A 0 Total 0 BURAK STAHL MD Jan 05, 2025 12:05
[2025-01-05 12:08] VITALS: O2SAT 98
== END 2025-01-05 12:19 | disposition home or self-care (01) ==
LOC: ER 09:37
DX: M25.561 Pain in right knee (principal); N18.9 Chronic kidney disease, unspecified; Z79.899 Other long term (current) drug therapy; Z79.890 Hormone replacement therapy; Z88.1 Allergy status to other antibiotic agents; Z88.6 Allergy status to analgesic agent; W18.30XA Fall on same level, unspecified, initial encounter; Y93.01 Activity, walking, marching and hiking; Y92.89 Other specified places as the place of occurrence of the external cause; Y99.8 Other external cause status
CPT/HCPCS: 73560